=== PATIENT | male | born 1955 | race Caucasian/White ===

== ENCOUNTER 2016-06-22 10:29 | Inpatient (IN) ==
--- NOTE | 2016-06-22 11:17 | Emergency Department Note ---
START Narrative - START START: For this encounter, I have reviewed the resident, FLOW MATCH SOFA CUTTER, or PA documentation, treatment plan, and medical decision making; and I have had face to face time with this patient. 61 yo male presents with abdominal pain. s/p savannah x11 days. Pt reports nausea , loss of appetite. +one loose red bowel movement this morning. +pain in the conchita-umbilical area, intermittent throughout the day. Now located in generalized abdomen. Denies fever, chills, vomiting. No near syncopal symptoms , chest pain, sob, palpitations. No anticoagulant use. On exam, lungs are CTAB , heart RRR, abd feels distended. +voluntary guarding but without rigidity. + ttp of the conchita-umbilical area. CT shows likely SBO. Pt admitted to Dr. Hall.
[2016-06-22] MEDS ORDERED: *HR* Morphine 2 MG/ML SYRINGE IVP ONE (11:24)
[2016-06-22] MEDS ORDERED: 0.9 % Sodium Chloride 1,000 ML IVC ONE (11:24)
[2016-06-22] MEDS ORDERED: Ondansetron 4 MG/2 ML VIAL IV ONE (11:24)
--- NOTE | 2016-06-22 11:25 | Emergency Department Note ---
Disposition Clinical Impression: Small bowel obstruction, Melena, Nausea GI bleed Qualifiers: GI bleed type/associated pathology: melena Qualified Code(s): K92.1 - Melena Disposition: Admitted As Inpatient Condition: Fair Time of Disposition: 14:30 Abdominal Pain HPI - General Chief Complaint: ED Abdominal Pain Stated Complaint: abd pain, nausea Source: patient Mode of arrival: ambulatory Limitations: no limitations Nursing Notes Reviewed: Yes Vital Signs Reviewed: Yes - History of Present Illness HPI Narrative: Patient is a 61-year-old male who is status post cholecystectomy in [address] Newsome complains of abdominal pain 6 days, anorexia, nausea without vomiting and constipation 5 days. Patient denies syncope or presyncope , lightheadedness dizziness. Patient states pain started off periumbilical generalized crampy intermittent 8 out of 10 to 9 hours a day, 2 out of 10 to triage today. Last oral intake yesterday, last flatulence one day ago, last bowel movement of red loose stool small amount this morning. Pain Scale: 5 - Related Data Home Medications Medication Instructions Recorded Confirmed Aspirin 81 mg PO DAILY 06/11/16 06/16/16 Atorvastatin [Lipitor] 40 mg PO HS 06/11/16 06/16/16 Furosemide [Lasix] 20 mg PO DAILY 06/11/16 06/16/16 OxyCODONE/APAP 5/325 [Percocet 1 tab PO Q6HR PRN 06/22/16 06/22/16 5/325 MG] Allergies Allergy/AdvReac Type Severity Reaction Status Date / Time No Known Allergies Allergy Verified 06/11/16 11:05 All systems ED: reviewed and negative except as stated. Constitutional: Denies: fever, chills, weakness Eyes: Denies: vision change ENT ED: Denies: throat pain, congestion Cardiovascular: Denies: chest pain, palpitations, dyspnea on exertion, syncope Respiratory: Denies: cough, dyspnea Gastrointestinal: Reports: abdominal pain, nausea. Denies: vomiting, diarrhea Genitourinary: Denies: urgency, dysuria Musculoskeletal: Reports: back pain Integumentary: Denies: rash Neurological: Denies: headache Psychiatric: Denies: anxiety Endocrine: Denies: fatigue Abdominal Pain PMH - Past Medical History Medical history: Reports: arthritis, COPD, coronary artery disease, GERD, other Male Surgical History: Reports: cholecystectomy Psychiatric history: Reports: no psych history - Social History Smoking status: Never smoker Alcohol use: Reports: none Drug use: Reports: none Physical Exam - General Limitations: no limitations General appearance: alert, in no apparent distress - Head Head exam: atraumatic, normocephalic, normal inspection - Eye Eye exam: Present: normal appearance, PERRL, EOMI. Absent: scleral icterus - ENT ENT exam: normal exam, normal oropharynx, mucous membranes moist - Neck Neck exam: Present: normal inspection, full ROM, trachea midline. Absent: tenderness - Chest Chest inspection: Present: normal inspection, symmetric chest wall rise. Absent : tenderness - Respiratory Respiratory exam: Present: normal lung sounds bilaterally, respiratory distress. Absent: wheezes, accessory muscle use - Cardiovascular Cardiovascular exam: Present: regular rate, normal rhythm, normal heart sounds - Abdominal Exam Abdominal exam: Present: soft, tenderness, distention, guarding, normal bowel sounds, scar (Surgical scars abdomen appear nonpurulent periods of ecchymosis but no signs of inflammation signifying infection). Absent: rebound, rigidity Abdominal tenderness: Present: LUQ, epigastrium, moderate - Rectal Exam Agency Service Representative present during exam: Yes Rectal exam: Present: normal inspection, normal rectal tone, heme (+) stool, bloody stool - Extremities Exam Extremities exam: Present: normal inspection, full ROM, normal capillary refill. Absent: tenderness, pedal edema - Back Exam Back exam: Present: normal inspection, full ROM, tenderness. Absent: CVA tenderness (R), CVA tenderness (L), muscle spasm (Area of old injury mid back lumbar) - Psychiatric Psychiatric exam: Present: normal affect, normal mood - Skin Skin exam: Present: warm, intact Course - Reevaluation(s) Reevaluation #1: 61-year-old male complains of abdominal pain with status post cholecystectomy 11 days presents with anorexia and constipation and abdominal pain 6 days had episode of small amount of red stool this a.m. He is worrisome for partial bowel obstruction, volvulus, mesenteric ischemia, constipation, nephrolithiasis, appendicitis. Plan CT abdomen and pelvis, CBC, BMP, LFTs, lactate, EKG, discussion and with Dr. Newsome. Place patient on Zofran for nausea 2 mg morphine for pain, 1 L normal saline. Time: 11:20 Reevaluation #2: Patient was reexamined and his nausea is currently controlled after Zofran administration. Patient refused pain meds secondary to not currently having any abdominal pain. Hemoccult stool sample positive Time: 12:12 Reevaluation #3: CT abdomen and pelvis shows small bowel obstruction will consult surgery. Patient was accepted for admission to surgical services by Dr. Hall in place nothing by mouth. Dr. Hall states that he will handle all of the patient's orders from here on out. He came and saw the patient in the emergency department. Time: 14:40 - Consultations Consultation #1: Discussed with Dr. Hall who states he wants to see the patient before admitting to his service or to medicine. Time: 14:11 Vital Signs Temperature 98 F 06/22/16 10:31 Pulse Rate 86 06/22/16 10:31 Respiratory Rate 16 06/22/16 10:31 Blood Pressure 138/88 06/22/16 10:31 O2 Sat by Pulse Oximetry 97 06/22/16 10:31 Temperature 98.4 F 06/22/16 16:21 Pulse Rate 69 06/22/16 16:21 Respiratory Rate 18 06/22/16 16:21 Blood Pressure 130/66 06/22/16 16:21 O2 Sat by Pulse Oximetry 94 L 06/22/16 16:21 Oxygen Delivery Oxygen Delivery Room Air Abdominal Pain - Medical Records Medical records reviewed: Yes I reviewed the patient's medical records. - Lab Data Lab results reviewed: Yes I reviewed the patient's lab results. Lab results narrative: Short CBC 06/22/16 Range/Units 12:07 WBC 8.8 (4.3-11.1) K/mcL Hgb 15.0 (12.9-16.9) g/dL Hct 42.3 (37.5-50.1) % Plt Count 238 (140-400) K/mcL Neutrophils # 7.2 (1.6-8.9) K/mcL BMP 06/22/16 Range/Units 12:07 Sodium 139 (136-145) mEq/L Potassium 4.2 (3.5-4.5) mEq/L Chloride 108 (98-109) mEq/L Carbon Dioxide 21 (19-29) mEq/L BUN 16 (8-26) mg/dL Creatinine 0.99 (0.72-1.25) mg/dL Glucose 99 (70-99) mg/dL Calcium 8.9 (8.6-10.8) mg/dL Liver Function 06/22/16 Range/Units 12:07 Total Bilirubin 1.1 (0.2-1.2) mg/dL Direct Bilirubin 0.5 (0.0-0.5) mg/dL AST 28 (5-34) Units/L ALT 31 (0-55) Units/L Alkaline Phosphatase 72 (38-126) Units/L Albumin 3.4 L (3.5-5.0) g/dL Urine 06/22/16 Range/Units 13:45 Urine Color Yellow (Yellow) Urine Clarity Clear (Clear) Urine pH 6.0 (5.0-8.0) pH Units Ur Specific [place] > 1.030 H (1.010-1.025) Urine Protein Negative (Neg-Trace) mg/dL Urine Glucose (UA) Normal (Normal) mg/dL Result diagrams: 06/22/16 12:07 06/22/16 12:07 Lab Results 06/22/16 06/22/16 06/22/16 Range/Units 11:40 12:07 12:07 WBC 8.8 (4.3-11.1) K/mcL RBC 4.91 (4.19-5.50) M/mcL Hgb 15.0 (12.9-16.9) g/dL Hct 42.3 (37.5-50.1) % MCV 86.2 (83.0-100.0) fL MCH 30.5 (28.0-33.3) pg MCHC 35.5 (31.6-35.5) g/dL RDW 14.0 (11.5-14.5) % Plt Count 238 (140-400) K/mcL MPV 9.1 L (9.4-12.4) fL Immature Gran % 0.5 (0-4) % Seg Neutrophils % 82.0 % Lymphocytes % 7.4 % Monocytes % 8.6 % Eosinophils % 1.2 % Basophils % 0.3 % Neutrophils # 7.2 (1.6-8.9) K/mcL Lymphocytes # 0.7 (0.6-4.6) K/mcL Monocytes # 0.8 (0.0-1.3) K/mcL Eosinophils # 0.1 (0.0-0.6) K/mcL Basophils # 0.0 (0.0-0.2) K/mcL Sodium 139 (136-145) mEq/L Potassium 4.2 (3.5-4.5) mEq/L Chloride 108 (98-109) mEq/L Carbon Dioxide 21 (19-29) mEq/L BUN 16 (8-26) mg/dL Creatinine 0.99 (0.72-1.25) mg/dL Est GFR ( Amer) > 60 (> 60) Est GFR (Non-Af Amer) > 60 (> 60) BUN/Creatinine Ratio 16 (6-26) Glucose 99 (70-99) mg/dL Calculated Osmolality 289 (280-300) Lactic Acid (0.5-2.2) mmol/L Calcium 8.9 (8.6-10.8) mg/dL Total Bilirubin 1.1 (0.2-1.2) mg/dL Direct Bilirubin 0.5 (0.0-0.5) mg/dL Indirect Bilirubin 0.6 (0.0-1.2) mg/dL AST 28 (5-34) Units/L ALT 31 (0-55) Units/L Alkaline Phosphatase 72 (38-126) Units/L Serum Total Protein 6.5 (6.0-8.3) g/dL Albumin 3.4 L (3.5-5.0) g/dL Globulin 3.1 (2.4-3.5) g/dL Albumin/Globulin Ratio 1.1 (1.1-2.2) Urine Color (Yellow) Urine Clarity (Clear) Urine pH (5.0-8.0) pH Units Ur Specific [place] (1.010-1.025) Urine Protein (Neg-Trace) mg/dL Urine Glucose (UA) (Normal) mg/dL Urine Ketones (Negative) mg/dL Urine Blood (Negative) Urine Nitrite (Negative) Urine Bilirubin (Negative) Urine Urobilinogen (Normal) mg/dL Ur Leukocyte Esterase (Negative) Urine Microscopic RBC (0-3) per hpf Urine Microscopic WBC (0-3) per hpf Ur Squamous Epith Cells (None-Few) per lpf Urine Bacteria (None-Few) per hpf Hyaline Casts (None-Few) per lpf Ur Culture Indicated? (NO) Stool Occult Blood Positive A (Negative) 06/22/16 06/22/16 Range/Units 12:07 13:45 WBC (4.3-11.1) K/mcL RBC (4.19-5.50) M/mcL Hgb (12.9-16.9) g/dL Hct (37.5-50.1) % MCV (83.0-100.0) fL MCH (28.0-33.3) pg MCHC (31.6-35.5) g/dL RDW (11.5-14.5) % Plt Count (140-400) K/mcL MPV (9.4-12.4) fL Immature Gran % (0-4) % Seg Neutrophils % % Lymphocytes % % Monocytes % % Eosinophils % % Basophils % % Neutrophils # (1.6-8.9) K/mcL Lymphocytes # (0.6-4.6) K/mcL Monocytes # (0.0-1.3) K/mcL Eosinophils # (0.0-0.6) K/mcL Basophils # (0.0-0.2) K/mcL Sodium (136-145) mEq/L Potassium (3.5-4.5) mEq/L Chloride (98-109) mEq/L Carbon Dioxide (19-29) mEq/L BUN (8-26) mg/dL Creatinine (0.72-1.25) mg/dL Est GFR ( Amer) (> 60) Est GFR (Non-Af Amer) (> 60) BUN/Creatinine Ratio (6-26) Glucose (70-99) mg/dL Calculated Osmolality (280-300) Lactic Acid 0.9 (0.5-2.2) mmol/L Calcium (8.6-10.8) mg/dL Total Bilirubin (0.2-1.2) mg/dL Direct Bilirubin (0.0-0.5) mg/dL Indirect Bilirubin (0.0-1.2) mg/dL AST (5-34) Units/L ALT (0-55) Units/L Alkaline Phosphatase (38-126) Units/L Serum Total Protein (6.0-8.3) g/dL Albumin (3.5-5.0) g/dL Globulin (2.4-3.5) g/dL Albumin/Globulin Ratio (1.1-2.2) Urine Color Yellow (Yellow) Urine Clarity Clear (Clear) Urine pH 6.0 (5.0-8.0) pH Units Ur Specific [place] > 1.030 H (1.010-1.025) Urine Protein Negative (Neg-Trace) mg/dL Urine Glucose (UA) Normal (Normal) mg/dL Urine Ketones 40 H (Negative) mg/dL Urine Blood Trace H (Negative) Urine Nitrite Negative (Negative) Urine Bilirubin Small H (Negative) Urine Urobilinogen Normal (Normal) mg/dL Ur Leukocyte Esterase Negative (Negative) Urine Microscopic RBC 5-15 H (0-3) per hpf Urine Microscopic WBC 0-3 (0-3) per hpf Ur Squamous Epith Cells Many H (None-Few) per lpf Urine Bacteria None Seen (None-Few) per hpf Hyaline Casts None Seen (None-Few) per lpf Ur Culture Indicated? NO (NO) Stool Occult Blood (Negative) - Radiology Data Radiology results reviewed: Yes I reviewed the patient's radiology results. Abdomen/Pelvis CT 06/22/16 11:22 IMPRESSION: 1. Acute small bowel obstruction with transition point in the mid ventral abdominal wall, likely secondary to adhesion. The dilated small bowel loops measure up to 4 cm. No ascites or free air. 2. Postsurgical changes of cholecystectomy. Mild stranding in the cholecystectomy bed without fluid collection or acute complication. 3. Normal appendix. D/ / 06/22/2016 13:48:20 Aliyah Montana MD / mony Interpreting Provider: Aliyah Montana MD - EKG Data EKG attestation: Yes I reviewed and interpreted this EKG. EKG results narrative: EKG dated 06/22/2016 1128 hrs. shows a sinus rhythm with a ventricular rate of [address] elevations or depressions in any leads. QRS widening with QT /QTC of 420/454 ms, QRS duration 148 ms. Urine of 182 ms.
[2016-06-22 12:20] LABS: Basophils % 0.3 %; Eosinophils # 0.1 K/mcL (0.0-0.6); Eosinophils % 1.2 %; Hematocrit 42.3 % (37.5-50.1); Immature Granulocytes % 0.5 % (0-4); Lymphocytes # 0.7 K/mcL (0.6-4.6); Lymphocytes % 7.4 %; Mean Corpuscular HGB Conc 35.5 g/dL (31.6-35.5); Mean Corpuscular Hemoglobin 30.5 pg (28.0-33.3); Mean Corpuscular Volume 86.2 fL (83.0-100.0); Mean Platelet Volume 9.1 fL (9.4-12.4); Monocytes # 0.8 K/mcL (0.0-1.3); Monocytes % 8.6 %; Neutrophils # 7.2 K/mcL (1.6-8.9); Platelet Count 238 K/mcL (140-400); Red Blood Count 4.91 M/mcL (4.19-5.50)
[2016-06-22 12:36] LABS: Alanine Aminotransferase 31 Units/L (0-55); Albumin 3.4 g/dL (3.5-5.0); Albumin/Globulin Ratio 1.1 (1.1-2.2); Alkaline Phosphatase 72 Units/L (38-126); Aspartate Amino Transferase 28 Units/L (5-34); BUN/Creatinine Ratio 16 (6-26); Bilirubin,Direct 0.5 mg/dL (0.0-0.5); Bilirubin,Indirect 0.6 mg/dL (0.0-1.2); Bilirubin,Total 1.1 mg/dL (0.2-1.2); Blood Urea Nitrogen 16 mg/dL (8-26); Calcium 8.9 mg/dL (8.6-10.8); Carbon Dioxide 21 mEq/L (19-29); Chloride 108 mEq/L (98-109); Globulin 3.1 g/dL (2.4-3.5); Glucose 99 mg/dL (70-99); Osmolality,Calculated 289 (280-300); Potassium 4.2 mEq/L (3.5-4.5); Sodium 139 mEq/L (136-145); Total Protein 6.5 g/dL (6.0-8.3); eGFR For African Americans > 60 (> 60); eGFR For Non-African Americans > 60 (> 60)
[2016-06-22 14:37] LABS: Bilirubin,Urine Small (Negative); Blood,Urine Trace (Negative); Clarity,Urine Clear (Clear); Color,Urine Yellow (Yellow); Glucose,Urine (UA) Normal (Normal); Ketones,Urine 40 mg/dL (Negative); Leukocyte Esterase,Urine Negative (Negative); Nitrite,Urine Negative (Negative); Protein,Urine Negative (Neg-Trace); Specific Gravity,Urine > 1.030 (1.010-1.025); Urobilinogen,Urine Normal (Normal)
[2016-06-22 14:38] LABS: Bacteria,Urine None Seen per hpf (None-Few); Hyaline Casts,Urine None Seen per lpf (None-Few); Squamous Epithelial Cell,Urine Many per lpf (None-Few); WBC,Urine 0-3 per hpf (0-3)
[2016-06-22] MEDS ORDERED: Naloxone 0.4 MG/ML INJ IVP PRN (14:45)
--- NOTE | 2016-06-22 17:01 | General Surg History&Physical ---
Date of Encounter: 06/22/16 Time of Encounter: 16:05 Assessment and Plan (1) Partial small bowel obstruction Current Visit: Yes Status: Acute The assessment and plan as outlined above was discussed with the patient and/or family members who expressed understanding and agreement. All questions were answered. Explain to the patient that he may have signs of partial small bowel obstruction whether related to the surgical procedure or possible gastroenteritis is hard to tell. Regardless, the mainstay of treatment will be IV fluid hydration and serial abdominal examinations. I do not think it is necessary to place an NG tube at this time and we will provide him with antinausea medication. We will closely follow and I will inform Dr. Newsome once he returns tomorrow that the patient has been admitted to [facility] under observation. History of Present Illness Chief complaint: Abdominal pain, nausea HPI: Mr. Davis is a 61 year old male with a past medical history significant for lower GI bleed, COPD, and coronary artery disease with symptoms of biliary colic and underwent a laparoscopic cholecystectomy with cholangiogram (robotic) with Dr. Newsome on 06/11/2016. The patient states that he was doing well until 5 days ago when he had the onset of flanks abdominal pain left greater than right. He states these been having nausea as well but denies any vomiting. He normally has 2-3 bowel movement per day but his last bowel movement was earlier today and he may have had one yesterday. He states he noticed some blood with wiping and he has had this in the past (previous admission for lower GI bleed). Denies any fever or chill symptoms and presented himself to [facility] for further evaluation. Past Med Surg Social Fam HX - Past Medical History Medical history: arthritis, COPD, coronary artery disease, GERD, other Psychiatric history: no psych history - Past Surgical History Surgical History: cholecystectomy (06/11/16), orthopedic, other - Social History Smoking Status: Never smoker Smokeless Tobacco Status: No Alcohol use: none Drug use: none - Family History Mother Living Status: Cause of : CHF Hx Family Cardiac Disorders: Yes (CHF, HTN) Hx Family Neurologic Disorders: Yes (dementia) Father Living Status: Cause of : CHF Hx Family Cardiac Disorders: Yes (HTN, CHF) Hx Family Endocrine Disorder: Yes (diabetes) Hx Family Neurologic Disorders: Yes (Alzheimer's) Medications and Allergies Aspirin 81 mg PO DAILY 06/11/16 [History] Atorvastatin [Lipitor] 40 mg PO HS 06/11/16 [History] Furosemide [Lasix] 20 mg PO DAILY 06/11/16 [History] OxyCODONE/APAP 5/325 [Percocet 5/325 MG] 1 tab PO Q6HR PRN 06/22/16 [History] Allergies No Known Allergies Allergy (Verified 06/11/16 11:05) Review of Systems All systems PM: reviewed and no additional remarkable complaints except as stated All systems PM: A 10-system review of systems was performed and is negative for pertinent findings except as documented above in the HPI. General Surgery Exam Initial Vital Signs Temp Pulse Resp BP Pulse Ox 98 F 86 16 138/88 97 06/22/16 10:31 06/22/16 10:31 06/22/16 10:31 06/22/16 10:31 06/22/16 10:31 - General physical appearance well developed, well nourished - Eyes normal ocular movement - Respiratory normal expansion, normal respiratory effort, clear to auscultation - Cardiovascular Cardiovascular exam: Present: RRR, no murmurs/rubs/gallops - Abdomen Abdomen general surgery: Present: soft (Scant bowel sounds. Incisions CDI. No erythema. No drainage. Mild pain noted to palpation.) - Neurologic Present: CN 2-12 grossly intact, normal coordination - Musculoskeletal Present: other (No clubbing, cyanosis, or edema.) - Psychiatric Psychiatric general surgery: Present: A&Ox3 Results - Labs 06/23/16 04:42 06/23/16 04:42 Abnormal lab results MPV 9.1 fL (9.4-12.4) L 06/22/16 12:07 Albumin 3.4 g/dL (3.5-5.0) L 06/22/16 12:07 Ur Specific [place] > 1.030 (1.010-1.025) H 06/22/16 13:45 Urine Ketones 40 mg/dL (Negative) H 06/22/16 13:45 Urine Blood Trace (Negative) H 06/22/16 13:45 Urine Bilirubin Small (Negative) H 06/22/16 13:45 Urine Microscopic RBC 5-15 per hpf (0-3) H 06/22/16 13:45 Ur Squamous Epith Cells Many per lpf (None-Few) H 06/22/16 13:45 Stool Occult Blood Positive (Negative) A 06/22/16 11:40 All other labs normal. - Imaging CT scan - abdomen: report reviewed, image reviewed (The distention of the small bowel with areas of normal appearing caliber possible concerning for partial small bowel obstruction. No abdominal masses noted no fluid/abscess is noted)
[2016-06-22] MEDS: Pantoprazole 40 MG VIAL IVP SCH (17:07)
[2016-06-22] MEDS: 0.9 % Sodium Chloride 1,000 ML IVC SCH (18:07)
[2016-06-22] MEDS: Ondansetron 4 MG/2 ML VIAL IVP PRN (19:07)
[2016-06-22] MEDS: *HR* HYDROmorphone (PF) 1 MG/ML SYRINGE IVP PRN (23:23)
[2016-06-23] MEDS: 0.9 % Sodium Chloride 1,000 ML IVC SCH ×3 (03:04→14:18)
[2016-06-23 05:06] LABS: Basophils % 0.3 %; Eosinophils # 0.2 K/mcL (0.0-0.6); Eosinophils % 1.5 %; Hematocrit 40.4 % (37.5-50.1); Hemoglobin 14.2 g/dL (12.9-16.9); Immature Granulocytes % 0.6 % (0-4); Lymphocytes # 0.6 K/mcL (0.6-4.6); Mean Corpuscular HGB Conc 35.1 g/dL (31.6-35.5); Mean Corpuscular Hemoglobin 30.9 pg (28.0-33.3); Mean Platelet Volume 9.3 fL (9.4-12.4); Monocytes # 0.9 K/mcL (0.0-1.3); Monocytes % 8.8 %; Neutrophils # 8.7 K/mcL (1.6-8.9); Platelet Count 233 K/mcL (140-400); Red Blood Count 4.59 M/mcL (4.19-5.50); Red Cell Distribution Width 14.3 % (11.5-14.5); Segmented Neutrophils % 82.8 %
[2016-06-23 05:19] LABS: BUN/Creatinine Ratio 18 (6-26); Blood Urea Nitrogen 17 mg/dL (8-26); Calcium 8.6 mg/dL (8.6-10.8); Carbon Dioxide 20 mEq/L (19-29); Chloride 109 mEq/L (98-109); Glucose 83 mg/dL (70-99); Osmolality,Calculated 289 (280-300); Potassium 4.3 mEq/L (3.5-4.5); Sodium 139 mEq/L (136-145); eGFR For African Americans > 60 (> 60); eGFR For Non-African Americans > 60 (> 60)
[2016-06-23] MEDS: Pantoprazole 40 MG VIAL IVP SCH (09:49)
[2016-06-23] MEDS: Ondansetron 4 MG/2 ML VIAL IVP PRN ×2 (10:00→18:13)
--- NOTE | 2016-06-23 12:44 | General Surgery Progress Note ---
Date of Encounter: 06/23/16 Time of Encounter: 12:30 - Assessment and Plan (1) Partial small bowel obstruction Current Visit: Yes Status: Acute Continue with conservative measures: Advance to clear liquids Decrease IV fluids to 60ml/hour Supportive care/pain control Magnesium citrate PO IS frankie 1 hour while awake Ambulate hallways TID with assistance (2) Urinary retention Current Visit: Yes Status: Acute Argueta catheter to SD UA negative for UTI Flomax start today (3) DVT prophylaxis Current Visit: Yes Status: Acute heparin 5,000 units SQ twice daily for DVT prophylaxis Subjective Patient reports: no new complaints, feels better, pain is less, flatus (last time was yesterday), bowel movement (48 hours ago), afebrile Objective Vital Signs - Last 8 Hours Temp Pulse Resp BP Pulse Ox 06/23/16 10:50 98.3 F 68 14 131/69 93 L 06/23/16 07:45 97.8 F 67 18 96/57 92 L Intake and Output 06/22/16 06/23/16 06/23/16 23:59 07:59 15:59 Intake Total 0 / 0 1000 / 1000 Output Total 150 / 150 500 / 500 0 / 0 Balance -150 / -150 500 / 500 0 / 0 Intake: IV Fluids 1000 / 1000 0.9 % Sodium Chloride 1, 1000 / 1000 000 ML @ 100 mls/hr IVC . Q10H [facility] Rx#:[id number] Oral 0 / 0 0 / 0 Output: Urine 150 / 150 Catheter 500 / 500 0 / 0 Other: Meal NPO for supper NPO Weight 105.7 kg Blood Glucose* 94 77 Patient Weight 06/23/16 23:59 Weight 105.7 kg - General physical appearance well developed, well nourished, no distress - Eyes normal ocular movement - ENT normal mucosa, atraumatic, normocephalic - Neck Neck exam: trachea midline - Respiratory normal respiratory effort, clear to auscultation - Cardiovascular Cardiovascular exam: Present: RRR - Abdomen Abdomen: Present: bowel sounds present, soft, distended, tender (mildly tender, expected post-operative) - Incision Incision: Present: clean and dry, intact - Genitourinary other (argueta catheter to SD with clear, yellow urine) - Integumentary no rash, no growths, no abnormal pigmentation - Neurologic CN 2-12 grossly intact - Psychiatric oriented to time, oriented to person, oriented to place, speech is normal, memory intact - Labs 06/23/16 04:42 06/23/16 04:42 Diabetes panel 06/23/16 Range/Units 04:42 Sodium 139 (136-145) mEq/L Potassium 4.3 (3.5-4.5) mEq/L Chloride 109 (98-109) mEq/L Carbon Dioxide 20 (19-29) mEq/L BUN 17 (8-26) mg/dL Creatinine 0.94 (0.72-1.25) mg/dL Glucose 83 (70-99) mg/dL Calcium 8.6 (8.6-10.8) mg/dL Calcium panel 06/23/16 Range/Units 04:42 Calcium 8.6 (8.6-10.8) mg/dL Pituitary panel 06/23/16 Range/Units 04:42 Sodium 139 (136-145) mEq/L Potassium 4.3 (3.5-4.5) mEq/L Chloride 109 (98-109) mEq/L Carbon Dioxide 20 (19-29) mEq/L BUN 17 (8-26) mg/dL Creatinine 0.94 (0.72-1.25) mg/dL Glucose 83 (70-99) mg/dL Calcium 8.6 (8.6-10.8) mg/dL Adrenal panel 06/23/16 Range/Units 04:42 Sodium 139 (136-145) mEq/L Potassium 4.3 (3.5-4.5) mEq/L Chloride 109 (98-109) mEq/L Carbon Dioxide 20 (19-29) mEq/L BUN 17 (8-26) mg/dL Creatinine 0.94 (0.72-1.25) mg/dL Glucose 83 (70-99) mg/dL Calcium 8.6 (8.6-10.8) mg/dL Consult Discharge Plan - Plan Referrals: Leyla Louise, MUSA [Primary Care Provider] - - Attending Attestation I examined this patient and my medical decision-making was reviewed with the MACHINE STEMMER/PA/Advanced Practice Nurse/Resident Physician. I agree with the documented findings, disposition and treatment plan as described except to the extent set forth below.
[2016-06-23] MEDS: *HR* HYDROmorphone (PF) 1 MG/ML SYRINGE IVP PRN (15:37)
[2016-06-23] MEDS: *HR* Heparin 5,000 UNIT/ML VIAL SQ SCH (17:43)
[2016-06-24] MEDS: 0.9 % Sodium Chloride 1,000 ML IVC SCH (05:19)
[2016-06-24] MEDS: *HR* Heparin 5,000 UNIT/ML VIAL SQ SCH ×2 (05:20→17:51)
--- NOTE | 2016-06-24 08:16 | Electrocardiograph Report ---
[place] [id number] Test Date: 2016-06-22 Pat Name: Demond Davis Department: 104 Room: 3A46 Gender: M [employer] Maker: MSC : [id number] Requested By: Anant Tidwell Order Number: [id number] Reading MD: Kar Smith MD Measurements Intervals [place] Rate: 79 P: 19 MO: 182 QRS: 12 QRSD: 148 T: 137 QT: 420 QTc: 454 Interpretive Statements SINUS RHYTHM LEFT BUNDLE BRANCH BLOCK Electronically Signed On 06-24-2016 8:14:36 EDT by Kar Smith MD
[2016-06-24] MEDS: Pantoprazole 40 MG VIAL IVP SCH (08:30)
[2016-06-24] MEDS: Aspirin 81 MG TAB.CHEW PO SCH (08:30)
--- NOTE | 2016-06-24 11:01 | General Surgery Progress Note ---
Date of Encounter: 06/24/16 Time of Encounter: 10:59 - Assessment and Plan (1) Partial small bowel obstruction Current Visit: Yes Status: Acute Continue with conservative measures: SBFT today with gastrograffin Advance to clear liquids IV fluids to 60ml/hour Supportive care/pain control IS frankie 1 hour while awake Ambulate hallways TID with assistance (2) Urinary retention Current Visit: Yes Status: Acute Argueta catheter to SD UA negative for UTI- negative Flomax- 2nd dose today (3) DVT prophylaxis Current Visit: Yes Status: Acute heparin 5,000 units SQ twice daily for DVT prophylaxis Subjective Patient reports: no new complaints, still having pain (left sided (improved)), tolerating liquids well, flatus, bowel movement, diarrhea, nausea (last evening) , afebrile, other (Continues to feel bloated and has no appetite) Objective Vital Signs - Last 8 Hours Temp Pulse Resp BP Pulse Ox 06/24/16 10:30 98.2 F 78 13 106/70 95 06/24/16 07:35 98 F 63 17 130/78 93 L 06/24/16 04:23 98.1 F 86 18 123/79 93 L Intake and Output 06/23/16 06/24/16 06/24/16 23:59 07:59 15:59 Intake Total 180 / 180 1000 / 1000 360 / 360 Output Total 325 / 325 300 / 300 Balance -145 / -145 700 / 700 360 / 360 Intake: IV Fluids 1000 / 1000 0.9 % Sodium Chloride 1, 1000 / 1000 000 ML @ 60 mls/hr IVC . [id number] [facility] Rx#: [id number] Oral 180 / 180 0 / 0 360 / 360 Output: Urine 0 / 0 Catheter 325 / 325 300 / 300 Other: Meal Dinner Breakfast Stool Size Moderate Small Stool Consistency liquid liquid Stool Color Brown Brown Yellow # Bowel Movements 0 1 Weight 106.549 kg Patient Weight 06/24/16 23:59 Weight 106.549 kg - General physical appearance well developed, well nourished, no distress - Eyes normal ocular movement - ENT normal mucosa, atraumatic, normocephalic - Neck Neck exam: trachea midline - Respiratory normal respiratory effort, clear to auscultation - Cardiovascular Cardiovascular exam: Present: RRR - Abdomen Abdomen: Present: bowel sounds present, soft, tender (mild) Abdominal Tenderness: LUQ - Incision Incision: Present: clean and dry, intact - Genitourinary other (argueta catheter to SD with clear, yellow urine noted) - Neurologic CN 2-12 grossly intact - Psychiatric oriented to time, oriented to person, oriented to place, speech is normal, memory intact - Labs 06/23/16 04:42 06/23/16 04:42 Consult Discharge Plan - Plan Referrals: Leyla Louise, ENDOSCOPIC TECHNICIAN [Primary Care Provider] - - Attending Attestation I examined this patient and my medical decision-making was reviewed with the WRAPPER LEAF INSPECTOR/PA/Advanced Practice Nurse/Resident Physician. I agree with the documented findings, disposition and treatment plan as described except to the extent set forth below.
[2016-06-24] MEDS: Ondansetron 4 MG/2 ML VIAL IVP PRN (14:56)
[2016-06-24] MEDS: *HR* HYDROmorphone (PF) 1 MG/ML SYRINGE IVP PRN (21:43)
[2016-06-25] MEDS: 0.9 % Sodium Chloride 1,000 ML IVC SCH ×2 (03:10→21:09)
[2016-06-25] MEDS: *HR* Heparin 5,000 UNIT/ML VIAL SQ SCH ×2 (06:12→17:14)
[2016-06-25] MEDS: Aspirin 81 MG TAB.CHEW PO SCH (08:47)
[2016-06-25] MEDS: Pantoprazole 40 MG VIAL IVP SCH (08:47)
[2016-06-25] MEDS: *HR* HYDROmorphone (PF) 1 MG/ML SYRINGE IVP PRN ×2 (11:21→22:39)
--- NOTE | 2016-06-25 11:23 | General Surgery Progress Note ---
Date of Encounter: 06/25/16 Time of Encounter: 11:20 - Assessment and Plan (1) Partial small bowel obstruction Current Visit: Yes Status: Acute Continue with conservative measures: SBFT- PSBO and patient had multiple bowel movements and is continuing to pass flatus F/U acute abdominal series this morning Clear liquids IV fluids to 60ml/hour Supportive care/pain control IS frankie 1 hour while awake Ambulate hallways TID with assistance (2) Urinary retention Current Visit: Yes Status: Acute Discontinue argueta catheter UA negative for UTI- negative Flomax- 3nd dose today (3) DVT prophylaxis Current Visit: Yes Status: Acute heparin 5,000 units SQ twice daily for DVT prophylaxis Subjective Patient reports: no new complaints, still having pain (Left sided discomfort), tolerating liquids well (poor appetite), flatus, bowel movement (multiple liquid bowel movements), afebrile Objective Vital Signs - Last 8 Hours Temp Pulse Resp BP Pulse Ox 06/25/16 11:02 98.4 F 68 14 105/69 94 L 06/25/16 06:53 98.2 F 67 16 97/61 96 06/25/16 03:21 97.5 F L 64 17 128/70 93 L Intake and Output 06/24/16 06/25/16 06/25/16 23:59 07:59 15:59 Intake Total 240 / 240 1000 / 1000 360 / 360 Output Total 250 / 250 100 / 100 Balance -10 / -10 900 / 900 360 / 360 Intake: IV Fluids 1000 / 1000 0.9 % Sodium Chloride 1, 1000 / 1000 000 ML @ 60 mls/hr IVC . [id number] [facility] Rx#: [id number] Oral 240 / 240 360 / 360 Output: Catheter 250 / 250 100 / 100 Other: Meal Breakfast Stool Size Large Smear Stool Consistency liquid liquid Stool Color Green Green Weight 106.73 kg Patient Weight 06/25/16 23:59 Weight 106.73 kg - General physical appearance well developed, well nourished, no distress - Eyes normal ocular movement - ENT normal mucosa, atraumatic, normocephalic - Neck Neck exam: trachea midline - Respiratory normal respiratory effort, clear to auscultation - Cardiovascular Cardiovascular exam: Present: RRR - Abdomen Abdomen: Present: bowel sounds present, soft, tender Abdominal Tenderness: LUQ - Incision Incision: Present: clean and dry, intact - Genitourinary other (argueta catheter to SD with clear, yellow urine noted) - Neurologic CN 2-12 grossly intact - Psychiatric oriented to time, oriented to person, oriented to place, speech is normal, memory intact - Labs 06/23/16 04:42 06/23/16 04:42 Consult Discharge Plan - Plan Referrals: Leyla Louise, MUSA [Primary Care Provider] - - Attending Attestation I examined this patient and my medical decision-making was reviewed with the LACTATION SPECIALIST/PA/Advanced Practice Nurse/Resident Physician. I agree with the documented findings, disposition and treatment plan as described except to the extent set forth below.
[2016-06-26] MEDS: *HR* Heparin 5,000 UNIT/ML VIAL SQ SCH (06:34)
[2016-06-26] MEDS: Aspirin 81 MG TAB.CHEW PO SCH (09:24)
[2016-06-26] MEDS: Pantoprazole 40 MG VIAL IVP SCH (09:25)
--- NOTE | 2016-06-26 14:58 | Discharge Summary ---
Date of Encounter: 06/25/16 Time of Encounter: 14:45 - Discharge Diagnosis (1) Partial small bowel obstruction Priority: Primary Status: Resolved (2) Urinary retention Priority: Secondary Status: Chronic - Discharge Medications Prescriptions: Ondansetron ODT [Zofran ODT] 4 mg SL Q6HR #30 tab.rapdis Tamsulosin [Flomax] 0.4 mg PO DAILY #30 capsule Home Medications: Aspirin 81 mg PO DAILY 06/11/16 [History] Atorvastatin [Lipitor] 40 mg PO HS 06/11/16 [History] Furosemide [Lasix] 20 mg PO DAILY 06/11/16 [History] OxyCODONE/APAP 5/325 [Percocet 5/325 MG] 1 tab PO Q6HR PRN 06/22/16 [History] Ondansetron ODT [Zofran ODT] 4 mg SL Q6HR #30 tab.rapdis 06/26/16 [Rx] Tamsulosin [Flomax] 0.4 mg PO DAILY #30 capsule 06/26/16 [Rx] Allergies/Adverse Reactions: Allergies No Known Allergies Allergy (Verified 06/11/16 11:05) General Surgery Exam Initial Vital Signs Temp Pulse Resp BP Pulse Ox 98 F 86 16 138/88 97 06/22/16 10:31 06/22/16 10:31 06/22/16 10:31 06/22/16 10:31 06/22/16 10:31 - General physical appearance well developed, well nourished, no distress - Eyes normal ocular movement - ENT normal mucosa, atraumatic, normocephalic - Neck trachea midline - Respiratory normal respiratory effort, clear to auscultation - Cardiovascular Cardiovascular exam: Present: RRR, 15, 16 - Abdomen Abdomen general surgery: Present: bowel sounds present, soft, tender (minimal) Abdominal Tenderness: Present: LUQ - Incision Incision: Present: clean and dry, intact - Integumentary Integumentary general surgery: Present: warm and dry - Neurologic Present: CN 2-12 grossly intact, normal coordination, normal sensation - Musculoskeletal Present: normal gait - Psychiatric Psychiatric general surgery: Present: appropriate, oriented to person, oriented to place, oriented to time, speech is normal, memory intact Date of admission: 06/24/16 13:14 Primary care physician: Leyla Louise Discharging clinician: Brooks Gonzales. Yamilet) Anticipated date of discharge: 06/26/16 - Patient Status Disposition: Home, Self-Care Condition: Good Functional capacity at discharge: independent ambulation Overall status at discharge: patient is progressing back to baseline - Discharge Instructions Follow Up With: Leyla Louise CNP [Primary Care Provider] - 07/07/16 9:00 am Brooks Newsome DO [Partnered Physician] - 07/01/16 1:50 pm (hospital follow-up) Ruiz Valdez MD [Partnered Physician] - (new referral for BPH work-up 2- 3 weeks) - Diet and Activity Activity: increase activity as tolerated Diet: advance to your usual diet - Hospital Course Hospital course: Mr. Davis is a 61 year old male s/p lap cholecystectomy on 06/11/[address] Newsome. He reported back to the ED with complaints of abdominal discomfort with associated nausea/vomiting. He was treated with conservative measures for PSBO. He also experienced urinary retention and did have to have a argueta catheter placed. He was treated with Flomax. He did have a SBFT which shows rapid movement of contrast through to the colon. He has had multiple bowel movements and is routinely passing flatus. He is currently tolerating full liquids without nausea/vomiting. His vital signs are stable and he is afebrile. He is voiding without difficulty. We will begin discharge planning and plan for outpatient follow-up next week. - Time Spent with Patient Total time spent providing and/or coordinating discharge services: Less than 30 minutes - Impressions ITS Impressions Chest/Abdomen X-ray 06/25/16 07:00 IMPRESSION: 1. The chest demonstrates mild left lung base atelectasis. 2. The contrast from the small bowel follow-through has completely passed into the colon. Stable focally dilated mid jejunal loops in the mid to lower abdomen. No evidence of perforation. D/ / 06/25/2016 12:25:15 Freddy Bourne MD / mony Interpreting Provider: Freddy Bourne MD - Attending Attestation I examined this patient and my medical decision-making was reviewed with the [employer]/PA/Advanced Practice Nurse/Resident Physician. I agree with the documented findings, disposition and treatment plan as described except to the extent set forth below.
[2016-06-26 15:51] VITALS: BP 110/71
== END 2016-06-26 16:20 | disposition home or self-care (01) | DRG 389 ==
LOC: 3ANU 10:29 → EMEROO 10:29 → 3ANU 15:46
PROVIDERS: ADMIT Surgery; ATTEND Surgery

== ENCOUNTER 2016-06-29 19:52 | Inpatient (IN) ==
--- NOTE | 2016-06-29 20:30 | Emergency Department Note ---
Disposition Clinical Impression: Small bowel obstruction Disposition: Admitted As Inpatient Condition: Good Time of Disposition: 01:55 Abdominal Pain HPI - General Chief Complaint: ED Abdominal Pain Stated Complaint: "Abd Pain/Nausea/Dehydrated" Time Seen by Provider: 06/29/16 20:06 Source: patient Mode of arrival: ambulatory Limitations: no limitations Nursing Notes Reviewed: Yes Vital Signs Reviewed: Yes - History of Present Illness HPI Narrative: 61-year-old male presents to the ED with abdominal pain. He describes left- sided abdominal pain that has been ongoing for past several days worse yesterday , feels like it radiates from the left side over the middle. He had an episode of nausea with vomiting hour and a half prior to arrival. Reportedly was brown stuff. He has eaten very minimally today. Reports a bowel movement several hours ago. He was recently admitted a week ago for a partial small bowel obstruction. Reportedly self resolved with conservative treatment he was discharged on . He reports a CT scan as well as several x-rays including contrasts for bowel study, and said he has been having consistent diarrhea. He reports episode of nonbloody diarrhea today. He has also been passing flatus. Denies any recent illness, chest pain or shortness of breath. No other physical complaints. He has a follow-up with Dr. Newsome on Thursday for follow-up of his cholecystectomy 3 weeks ago. He recently restarted his oxycodone 2 days ago. Zofran has not helped with his nausea. Pain Scale: 5 - Related Data Home Medications Medication Instructions Recorded Confirmed Aspirin 81 mg PO DAILY 06/11/16 06/22/16 Atorvastatin [Lipitor] 40 mg PO HS 06/11/16 06/22/16 Furosemide [Lasix] 20 mg PO DAILY 06/11/16 06/22/16 OxyCODONE/APAP 5/325 [Percocet 1 tab PO Q6HR PRN 06/22/16 06/22/16 5/325 MG] Previous Rx's Medication Instructions Recorded Ondansetron ODT [Zofran ODT] 4 mg SL Q6HR #30 tab.rapdis 06/26/16 Tamsulosin [Flomax] 0.4 mg PO DAILY #30 capsule 06/26/16 Allergies Allergy/AdvReac Type Severity Reaction Status Date / Time No Known Allergies Allergy Verified 06/29/16 19:59 All systems ED: reviewed and negative except as stated. Constitutional: Denies: fever, chills, weakness Cardiovascular: Denies: chest pain Respiratory: Denies: cough, dyspnea Gastrointestinal: Reports: abdominal pain, nausea, vomiting, diarrhea. Denies: melena, hematochezia Genitourinary: Denies: urgency, dysuria Musculoskeletal: Denies: back pain Integumentary: Denies: rash, abrasion Abdominal Pain PMH - Past Medical History Medical history: Reports: arthritis, COPD, coronary artery disease, GERD, other Male Surgical History: Reports: cholecystectomy Psychiatric history: Reports: no psych history - Social History Smoking status: Never smoker Alcohol use: Reports: none Drug use: Reports: none Physical Exam - General Limitations: no limitations General appearance: alert, in no apparent distress - Head Head exam: atraumatic, normocephalic, normal inspection - Eye Eye exam: Present: normal appearance, PERRL, EOMI - ENT ENT exam: normal exam, normal oropharynx, mucous membranes moist - Neck Neck exam: Present: normal inspection, full ROM, trachea midline - Chest Chest inspection: Present: normal inspection, symmetric chest wall rise - Respiratory Respiratory exam: Present: normal lung sounds bilaterally. Absent: respiratory distress, wheezes - Cardiovascular Cardiovascular exam: Present: regular rate, normal rhythm, normal heart sounds. Absent: systolic murmur, diastolic murmur - Abdominal Exam Abdominal exam: Present: soft (Obese), tenderness, hyperactive bowel sounds, incision (Well healing from prior cholecystectomy), scar (Midline from lymphoma) . Absent: distention, guarding, rebound, rigidity Abdominal tenderness: Present: diffuse - Extremities Exam Extremities exam: Present: normal inspection, full ROM, normal capillary refill. Absent: tenderness, pedal edema, calf tenderness - Neurological Exam Neurological exam: Present: alert, oriented X3 - Psychiatric Psychiatric exam: Present: normal affect, normal mood - Skin Skin exam: Present: warm, dry, intact, normal color Course Course Narrative: 61-year-old male presents with abdominal pain and nausea vomiting. Recently admitted for partial small bowel obstruction week ago. Was discharged several days ago and continues to have some mild pain. An episode of vomiting today. Concern for possible obstruction. He appears in no acute distress. Alert and oriented person place and time. Heart levels are normal. Abdomen is obese but soft nontender nondistended. Bowel sounds are hyperactive. He has well healing incision scars. We will give him Phenergan for nausea and get an acute abdominal series to rule out obstruction. - Reevaluation(s) Reevaluation #1: Acute abdominal series reveals small bowel obstruction with a transition point in the mid to proximal small bowel. Will get a CT with oral contrast and basic labs, patient will likely be admitted. Chest/Abdomen X-ray 06/29/16 20:25 IMPRESSION: Findings suggest a small bowel obstruction with a transition zone in the mid to proximal small bowel D/ / Christiano Henao MD / Christiano Henao MD Interpreting Provider: Christiano Henao MD Time: 21:40 Reevaluation #2: Labs are unremarkable. Lactate level is within normal limits. CT of the abdomen and pelvis with oral contrast which revealed a small bowel obstruction that has progressed from prior CT on the . Will admit patient for small bowel obstruction. Patient is in agreement with plan. Abdomen remains soft and not rigid or distended. Chest/Abdomen X-ray 06/29/16 20:25 IMPRESSION: Findings suggest a small bowel obstruction with a transition zone in the mid to proximal small bowel D/ / Christiano Henao MD / Christiano Henao MD Interpreting Provider: Christiano Henao MD Abdomen/Pelvis CT 06/29/16 21:38 IMPRESSION: Small bowel obstruction has progressed. D/ / Kevin Sepulveda MD / Kevin Sepulveda MD Interpreting Provider: Kevin Sepulveda MD Time: 01:52 Reevaluation #3: Review of the of KUB reveals NG to be the correct position. There is good gastric return. NG advanced an additional 1-2 cm. Awaiting radiologist's interpretation. Stable for admission to hospital. Time: 03:27 - Consultations Consultation #1: Spoke with on-call surgeon kevin Villa to admit for small bowel obstruction. NG tube placement. Time: 01:52 Vital Signs Temperature 98.3 F 06/29/16 19:54 Pulse Rate 114 06/29/16 19:54 Respiratory Rate 18 06/29/16 19:54 Blood Pressure 124/84 06/29/16 19:54 O2 Sat by Pulse Oximetry 95 06/29/16 19:54 Temperature 98.3 F 06/29/16 19:54 Pulse Rate 95 06/30/16 00:33 Respiratory Rate 16 06/30/16 02:52 Blood Pressure 118/67 06/30/16 02:52 O2 Sat by Pulse Oximetry 95 06/30/16 00:33 Oxygen Delivery Oxygen Delivery Room Air Abdominal Pain - Medical Records Medical records reviewed: Yes I reviewed the patient's medical records. - Lab Data Lab results reviewed: Yes I reviewed the patient's lab results. Result diagrams: 06/29/16 21:57 06/29/16 21:57 Lab Results 06/29/16 06/29/16 06/29/16 Range/Units 21:57 21:57 22:39 WBC 11.5 H (4.3-11.1) K/mcL RBC 5.52 H (4.19-5.50) M/mcL Hgb 16.5 D (12.9-16.9) g/dL Hct 49.6 (37.5-50.1) % MCV 89.9 (83.0-100.0) fL MCH 29.9 (28.0-33.3) pg MCHC 33.3 (31.6-35.5) g/dL RDW 14.7 H (11.5-14.5) % Plt Count 286 (140-400) K/mcL MPV 9.0 L (9.4-12.4) fL Immature Gran % 0.5 (0-4) % Seg Neutrophils % 83.6 % Lymphocytes % 6.8 % Monocytes % 8.3 % Eosinophils % 0.6 % Basophils % 0.2 % Neutrophils # 9.6 H (1.6-8.9) K/mcL Lymphocytes # 0.8 (0.6-4.6) K/mcL Monocytes # 1.0 (0.0-1.3) K/mcL Eosinophils # 0.1 (0.0-0.6) K/mcL Basophils # 0.0 (0.0-0.2) K/mcL Sodium 142 (136-145) mEq/L Potassium 3.8 (3.5-4.5) mEq/L Chloride 104 (98-109) mEq/L Carbon Dioxide 25 (19-29) mEq/L BUN 16 (8-26) mg/dL Creatinine 1.29 H (0.72-1.25) mg/dL Est GFR ( Amer) > 60 (> 60) Est GFR (Non-Af Amer) 57 L (> 60) BUN/Creatinine Ratio 12 (6-26) Glucose 97 (70-99) mg/dL Calculated Osmolality 295 (280-300) Lactic Acid 1.1 (0.5-2.2) mmol/L Calcium 9.6 (8.6-10.8) mg/dL Total Bilirubin 1.0 (0.2-1.2) mg/dL Direct Bilirubin 0.4 (0.0-0.5) mg/dL Indirect Bilirubin 0.6 (0.0-1.2) mg/dL AST 47 H (5-34) Units/L ALT 57 H (0-55) Units/L Alkaline Phosphatase 88 (38-126) Units/L Serum Total Protein 7.2 (6.0-8.3) g/dL Albumin 3.6 (3.5-5.0) g/dL Globulin 3.6 H (2.4-3.5) g/dL Albumin/Globulin Ratio 1.0 L (1.1-2.2) Lipase 13 (8-78) Units/L - Radiology Data Radiology results reviewed: Yes I reviewed the patient's radiology results. Images interpreted by radiologist and reviewed by myself, there is dilatation of the small bowel consistent with obstruction, compared to prior images appears worse than priors. Chest/Abdomen X-ray 06/29/16 20:25 IMPRESSION: Findings suggest a small bowel obstruction with a transition zone in the mid to proximal small bowel D/ / Christiano Henao MD / Christiano Henao MD Interpreting Provider: Christiano Henao MD Abdomen/Pelvis CT 06/29/16 21:38 IMPRESSION: Small bowel obstruction has progressed. D/ / Kevin Sepulveda MD / Kevin Sepulveda MD Interpreting Provider: Kevin Sepulveda MD Attestation Statement - Attestation Attestation: I, Guy Webster MD, personally performed a history and physical exam of the patient and discussed their management with the resident. I reviewed the resident's note and agree with the documented findings, medical decision making , and plan of care. 61-year-old male presents to the emergency department complaining of vomiting and abdominal pain and distention. Patient had a cholecystectomy approximately 3 weeks ago. About one week ago he was admitted here for a possible small bowel obstruction. He was discharged 3 days ago. He states that at time of discharge his abdomen was still distended and is still having abdominal pain. He states his bowels have been moving but small amounts and he has been passing some gas. This evening he had an episode of vomiting and increased pain. The emesis was light brownish in color. No melena, hematemesis, or hematochezia. No fever. Some decreased urine output. No fever. On examination patient is a well-developed well-nourished well-appearing male in no acute distress. He is alert and oriented 3. There is no cyanosis or diaphoresis. The sounds are clear and equal bilaterally. Heart regular rate and rhythm. Abdomen is soft with hyperactive obstructed sounding bowel sounds. Mild diffuse tenderness. Mild to moderate distention with some tympany. Acute abdomen series suggest a small bowel obstruction with a transition point in the mid to proximal small bowel. Labs reviewed. A CT of the abdomen and pelvis with oral contrast was obtained and showed progression of the previously noted small bowel obstruction. Surgeon personal care assistant, Dr. Alba, was consulted and accepted admission the patient to the surgical service.
[2016-06-29 22:06] LABS: Basophils % 0.2 %; Eosinophils # 0.1 K/mcL (0.0-0.6); Eosinophils % 0.6 %; Hematocrit 49.6 % (37.5-50.1); Hemoglobin 16.5 g/dL (12.9-16.9); Immature Granulocytes % 0.5 % (0-4); Lymphocytes # 0.8 K/mcL (0.6-4.6); Lymphocytes % 6.8 %; Mean Corpuscular HGB Conc 33.3 g/dL (31.6-35.5); Mean Corpuscular Hemoglobin 29.9 pg (28.0-33.3); Mean Corpuscular Volume 89.9 fL (83.0-100.0); Monocytes % 8.3 %; Neutrophils # 9.6 K/mcL (1.6-8.9); Platelet Count 286 K/mcL (140-400); Red Blood Count 5.52 M/mcL (4.19-5.50); Red Cell Distribution Width 14.7 % (11.5-14.5); Segmented Neutrophils % 83.6 %
[2016-06-29 22:20] LABS: Alanine Aminotransferase 57 Units/L (0-55); Albumin 3.6 g/dL (3.5-5.0); Alkaline Phosphatase 88 Units/L (38-126); Aspartate Amino Transferase 47 Units/L (5-34); BUN/Creatinine Ratio 12 (6-26); Bilirubin,Direct 0.4 mg/dL (0.0-0.5); Bilirubin,Indirect 0.6 mg/dL (0.0-1.2); Blood Urea Nitrogen 16 mg/dL (8-26); Calcium 9.6 mg/dL (8.6-10.8); Carbon Dioxide 25 mEq/L (19-29); Chloride 104 mEq/L (98-109); Globulin 3.6 g/dL (2.4-3.5); Glucose 97 mg/dL (70-99); Lipase 13 Units/L (8-78); Osmolality,Calculated 295 (280-300); Potassium 3.8 mEq/L (3.5-4.5); Sodium 142 mEq/L (136-145); Total Protein 7.2 g/dL (6.0-8.3); eGFR For African Americans > 60 (> 60); eGFR For Non-African Americans 57 (> 60)
[2016-06-29] MEDS ORDERED: 0.9 % Sodium Chloride 500 ML IVC ONE (22:59)
[2016-06-29] MEDS ORDERED: 0.9 % Sodium Chloride 1,000 ML IVC SCH (23:00)
[2016-06-30] MEDS ORDERED: *HR* Morphine 2 MG/ML SYRINGE IVP ONE (00:19)
[2016-06-30] MEDS ORDERED: *HR* Promethazine 25 MG/ML VIAL IVP ONE (00:19)
[2016-06-30] MEDS ORDERED: *HR* LORazepam 2 MG/ML VIAL IVP ONE (04:15)
[2016-06-30] MEDS: 0.9 % Sodium Chloride 1,000 ML IVC SCH ×3 (04:43→17:30)
[2016-06-30] MEDS: *HR* Morphine 2 MG/ML SYRINGE IVP PRN ×5 (04:57→23:48)
[2016-06-30] MEDS: Pantoprazole 40 MG VIAL IVP SCH (07:46)
[2016-06-30 08:35] LABS: Basophils % 0.2 %; Eosinophils # 0.1 K/mcL (0.0-0.6); Hematocrit 40.3 % (37.5-50.1); Immature Granulocytes % 0.5 % (0-4); Lymphocytes # 0.6 K/mcL (0.6-4.6); Lymphocytes % 7.2 %; Mean Corpuscular Hemoglobin 30.6 pg (28.0-33.3); Mean Platelet Volume 9.1 fL (9.4-12.4); Monocytes # 0.7 K/mcL (0.0-1.3); Monocytes % 8.8 %; Neutrophils # 6.9 K/mcL (1.6-8.9); Platelet Count 218 K/mcL (140-400); Red Blood Count 4.48 M/mcL (4.19-5.50); Red Cell Distribution Width 15.2 % (11.5-14.5); Segmented Neutrophils % 82.3 %
[2016-06-30 08:36] LABS: Hemoglobin 13.7 g/dL (12.9-16.9)
[2016-06-30 08:50] LABS: BUN/Creatinine Ratio 16 (6-26); Blood Urea Nitrogen 15 mg/dL (8-26); Calcium 8.6 mg/dL (8.6-10.8); Carbon Dioxide 24 mEq/L (19-29); Chloride 106 mEq/L (98-109); Glucose 100 mg/dL (70-99); Osmolality,Calculated 289 (280-300); Sodium 139 mEq/L (136-145); eGFR For African Americans > 60 (> 60); eGFR For Non-African Americans > 60 (> 60)
--- NOTE | 2016-06-30 11:52 | General Surg History&Physical ---
Date of Encounter: 06/30/16 Time of Encounter: 10:00 Assessment and Plan (1) Small bowel obstruction Current Visit: Yes Status: Acute The assessment and plan as outlined above was discussed with the patient and/or family members who expressed understanding and agreement. All questions were answered. He had just underwent robotic cholecystectomy on 06/11/16 as an outpatient. He returned to the ED on 06/22/16 with abdominal pain associated with nausea and vomiting. He was found to have a partial SBO and was treated with conservative measures. He was discharged on 06/26/16 for partial SBO that appeared to be resolving. He was having BM's and passing flatus throughout the previous admission. He returned to the ED on 06/29/16 with worsening abdominal pain and distention, and has not had a BM for at least a few days. He appears to be more uncomfortable during this admission than previously. His abdomen is diffusely tender. I did not appreciate any bowel sounds on examination. His liver enzymes are mildly elevated. He is not having any flatus or bm's and is having worsening nausea. Radiographic imaging findings suggest a small bowel obstruction with a transition zone in the mid to proximal small bowel. A CT A/P revealed progression of SBO from prior study during last admission. History of Present Illness Chief complaint: abdominal pain HPI: Mr. Davis is a 61 year old male with a past medical history significant for lower GI bleed, COPD, and coronary artery disease with symptoms of biliary colic and underwent a laparoscopic cholecystectomy with cholangiogram (robotic) with Dr. Newsome on 06/11/2016. He was recently admitted with a partial SBO which was treated with conservative measures and was discharged home on . During his recent admission he had a SBFT which showed rapid movement of contrast through the colon. He returned to the ED on 06/29/16 with complaints of worsening abdominal pain, not able to have a bowel movement, and not passing any flatus. He has been unable to eat since being discharged. He continues to have nausea but has not had any emesis. He denies fever, rigors. An XR revealed possible SBO with transition zone in the mid to proximal small bowel. A CT A/P revealed progression of SBO form previous CT. Past Med Surg Social Fam HX - Past Medical History Medical history: arthritis, COPD, coronary artery disease, GERD, other Psychiatric history: no psych history - Past Surgical History Surgical History: cholecystectomy (06/11/16), orthopedic, other - Social History Smoking Status: Never smoker Smokeless Tobacco Status: No Alcohol use: none Drug use: none - Family History Mother Living Status: Hx Family Cardiac Disorders: Yes (CHF, HTN) Hx Family Neurologic Disorders: Yes (dementia) Father Living Status: Hx Family Cardiac Disorders: Yes (HTN, CHF) Hx Family Endocrine Disorder: Yes (diabetes) Hx Family Neurologic Disorders: Yes (Alzheimer's) Medications and Allergies Aspirin 81 mg PO DAILY 06/11/16 [History] Atorvastatin [Lipitor] 40 mg PO HS 06/11/16 [History] Furosemide [Lasix] 20 mg PO DAILY 06/11/16 [History] OxyCODONE/APAP 5/325 [Percocet 5/325 MG] 1 tab PO Q6HR PRN 06/22/16 [History] Ondansetron ODT [Zofran ODT] 4 mg SL Q6HR #30 tab.rapdis 06/26/16 [Rx] Tamsulosin [Flomax] 0.4 mg PO DAILY #30 capsule 06/26/16 [Rx] Allergies No Known Allergies Allergy (Verified 06/29/16 19:59) Review of Systems All systems PM: A 10-system review of systems was performed and is negative for pertinent findings except as documented above in the HPI. General Surgery Exam Initial Vital Signs Temp Pulse Resp BP Pulse Ox 98.3 F 114 18 124/84 95 06/29/16 19:54 06/29/16 19:54 06/29/16 19:54 06/29/16 19:54 06/29/16 19:54 - General physical appearance well developed, well nourished, moderate distress, moderate pain - Neck trachea midline - Respiratory normal expansion, clear to auscultation - Cardiovascular Cardiovascular exam: Present: RRR, no murmurs/rubs/gallops - Abdomen Abdomen general surgery: Present: soft, distended, tender, guarding (voluntary) , surgical scars. Absent: bowel sounds present Abdominal Tenderness: Present: diffusely - Incision Incision: Present: clean and dry, intact (from lap [place] 06/11/16) - Neurologic Present: CN 2-12 grossly intact - Psychiatric Psychiatric general surgery: Present: A&Ox3 Results - Labs 06/30/16 08:18 04/03/17 08:18 Abnormal lab results RDW 15.2 % (11.5-14.5) H 06/30/16 08:18 MPV 9.1 fL (9.4-12.4) L 06/30/16 08:18 Glucose 100 mg/dL (70-99) H 06/30/16 08:18 AST 47 Units/L (5-34) H 06/29/16 21:57 ALT 57 Units/L (0-55) H 06/29/16 21:57 Globulin 3.6 g/dL (2.4-3.5) H 06/29/16 21:57 Albumin/Globulin Ratio 1.0 (1.1-2.2) L 06/29/16 21:57 Diabetes panel 06/30/16 Range/Units 08:18 Sodium 139 (136-145) mEq/L Potassium 4.0 (3.5-4.5) mEq/L Chloride 106 (98-109) mEq/L Carbon Dioxide 24 (19-29) mEq/L BUN 15 (8-26) mg/dL Creatinine 0.94 (0.72-1.25) mg/dL Glucose 100 H (70-99) mg/dL Calcium 8.6 (8.6-10.8) mg/dL Calcium panel 06/30/16 Range/Units 08:18 Calcium 8.6 (8.6-10.8) mg/dL Pituitary panel 06/30/16 Range/Units 08:18 Sodium 139 (136-145) mEq/L Potassium 4.0 (3.5-4.5) mEq/L Chloride 106 (98-109) mEq/L Carbon Dioxide 24 (19-29) mEq/L BUN 15 (8-26) mg/dL Creatinine 0.94 (0.72-1.25) mg/dL Glucose 100 H (70-99) mg/dL Calcium 8.6 (8.6-10.8) mg/dL Adrenal panel 06/30/16 Range/Units 08:18 Sodium 139 (136-145) mEq/L Potassium 4.0 (3.5-4.5) mEq/L Chloride 106 (98-109) mEq/L Carbon Dioxide 24 (19-29) mEq/L BUN 15 (8-26) mg/dL Creatinine 0.94 (0.72-1.25) mg/dL Glucose 100 H (70-99) mg/dL Calcium 8.6 (8.6-10.8) mg/dL All other labs normal.
--- NOTE | 2016-06-30 13:11 | General Surg History&Physical ---
Date of Encounter: 06/30/16 Time of Encounter: 12:30 Assessment and Plan (1) Partial small bowel obstruction Current Visit: No Status: Resolved The assessment and plan as outlined above was discussed with the patient and/or family members who expressed understanding and agreement. All questions were answered. Continue with conservative measures at this time: Bowel rest with NG tube to LIWS IV fluids Serial abdominal exams Supportive care/pain control May need a diagnostic laparoscopy in the upcoming days (2) DVT prophylaxis Current Visit: No Status: Acute The assessment and plan as outlined above was discussed with the patient and/or family members who expressed understanding and agreement. All questions were answered. Ambulate hallways TID with assistance Heparin 5,000 units SQ twice daily for DVT prophylaxis History of Present Illness Chief complaint: LUQ pain with associated nausea/vomiting HPI: Mr. Davis is a 61 year old male who is s/p a laparoscopic cholecystectomy with IOC with Dr. Newsome on 06/11/16. He was admitted to the hospital last week with PSBO and was treated with conservative measures. He did have return of bowel function and was tolerating a soft diet without difficulty. He was discharged to home at that time. He states that he severe LUQ pain yesterday with associated nausea and vomiting and he returned to the ED for evaluation. He denies any hematemesis of coffee ground emesis. He does continue to have bowel movements but states that he has loose stools, last BM was yesterday. He is passing some flatus but less than usual for him. Denies any fevers/chills. Denies any shortness of breath of chest pains. Denies any difficulty with urination. CT scan shows evidence of a PSBO. He has been admitted to the hospital for further work-up and treatment. Past Med Surg Social Fam HX - Past Medical History Source: patient, old records reviewed Medical history: arthritis, COPD, coronary artery disease, GERD, other (CASPER) Psychiatric history: no psych history - Past Surgical History Surgical History: cholecystectomy (06/11/16), orthopedic, other (repair of right femur/crushed patella), other (exploratory laparotomy (portal and mesenteric LN sampling), Left hear cath, EGD/Colonoscopy 2016) - Social History Smoking Status: Never smoker Smokeless Tobacco Status: No Alcohol use: none Drug use: none - Family History Mother Living Status: Hx Family Cardiac Disorders: Yes (CHF, HTN) Hx Family Neurologic Disorders: Yes (dementia) Father Living Status: Hx Family Cardiac Disorders: Yes (HTN, CHF) Hx Family Endocrine Disorder: Yes (diabetes) Hx Family Neurologic Disorders: Yes (Alzheimer's) Medications and Allergies Aspirin 81 mg PO DAILY 06/11/16 [History] Atorvastatin [Lipitor] 40 mg PO HS 06/11/16 [History] Furosemide [Lasix] 20 mg PO DAILY 06/11/16 [History] OxyCODONE/APAP 5/325 [Percocet 5/325 MG] 1 tab PO Q6HR PRN 06/22/16 [History] Ondansetron ODT [Zofran ODT] 4 mg SL Q6HR #30 tab.rapdis 06/26/16 [Rx] Tamsulosin [Flomax] 0.4 mg PO DAILY #30 capsule 06/26/16 [Rx] Allergies No Known Allergies Allergy (Verified 06/29/16 19:59) Review of Systems All systems PM: reviewed and no additional remarkable complaints except as stated (in the HPI) All systems PM: A 10-system review of systems was performed and is negative for pertinent findings except as documented above in the HPI. General Surgery Exam Initial Vital Signs Temp Pulse Resp BP Pulse Ox 98.3 F 114 18 124/84 95 06/29/16 19:54 06/29/16 19:54 06/29/16 19:54 06/29/16 19:54 06/29/16 19:54 - General physical appearance well developed, well nourished, no distress, obese - Eyes PERRL, normal ocular movement - ENT dry mucosa, atraumatic, normocephalic - Neck trachea midline - Respiratory normal respiratory effort, clear to auscultation - Cardiovascular Cardiovascular exam: Present: RRR, 15, 16 - Abdomen Abdomen general surgery: Present: bowel sounds present, soft, distended, tender , wound (NG tube to LIWS with bilious drainage noted) Abdominal Tenderness: Present: LUQ - Incision Incision: Present: clean and dry, intact - Integumentary Integumentary general surgery: Present: warm and dry - Neurologic Present: CN 2-12 grossly intact - Musculoskeletal Present: normal gait, normal posture - Psychiatric Psychiatric general surgery: Present: appropriate, oriented to person, oriented to place, oriented to time, speech is normal, memory intact Results - Labs 06/30/16 08:18 06/30/16 08:18 Abnormal lab results RDW 15.2 % (11.5-14.5) H 06/30/16 08:18 MPV 9.1 fL (9.4-12.4) L 06/30/16 08:18 Glucose 100 mg/dL (70-99) H 06/30/16 08:18 AST 47 Units/L (5-34) H 06/29/16 21:57 ALT 57 Units/L (0-55) H 06/29/16 21:57 Globulin 3.6 g/dL (2.4-3.5) H 06/29/16 21:57 Albumin/Globulin Ratio 1.0 (1.1-2.2) L 06/29/16 21:57 Diabetes panel 06/30/16 Range/Units 08:18 Sodium 139 (136-145) mEq/L Potassium 4.0 (3.5-4.5) mEq/L Chloride 106 (98-109) mEq/L Carbon Dioxide 24 (19-29) mEq/L BUN 15 (8-26) mg/dL Creatinine 0.94 (0.72-1.25) mg/dL Glucose 100 H (70-99) mg/dL Calcium 8.6 (8.6-10.8) mg/dL Calcium panel 06/30/16 Range/Units 08:18 Calcium 8.6 (8.6-10.8) mg/dL Pituitary panel 06/30/16 Range/Units 08:18 Sodium 139 (136-145) mEq/L Potassium 4.0 (3.5-4.5) mEq/L Chloride 106 (98-109) mEq/L Carbon Dioxide 24 (19-29) mEq/L BUN 15 (8-26) mg/dL Creatinine 0.94 (0.72-1.25) mg/dL Glucose 100 H (70-99) mg/dL Calcium 8.6 (8.6-10.8) mg/dL Adrenal panel 06/30/16 Range/Units 08:18 Sodium 139 (136-145) mEq/L Potassium 4.0 (3.5-4.5) mEq/L Chloride 106 (98-109) mEq/L Carbon Dioxide 24 (19-29) mEq/L BUN 15 (8-26) mg/dL Creatinine 0.94 (0.72-1.25) mg/dL Glucose 100 H (70-99) mg/dL Calcium 8.6 (8.6-10.8) mg/dL All other labs normal. - Imaging Additional studies: Chest/Abdomen X-ray 06/29/16 20:25 IMPRESSION: Findings suggest a small bowel obstruction with a transition zone in the mid to proximal small bowel D/ / Christiano Henao MD / Christiano Henao MD Interpreting Provider: Christiano Henao MD Abdomen/Pelvis CT 06/29/16 21:38 IMPRESSION: Small bowel obstruction has progressed. D/ / Kevin Sepulveda MD / Kevin Sepulveda MD Interpreting Provider: Kevin Sepulveda MD X-Ray 06/30/16 02:20 IMPRESSION: The tip of the enteric tube is likely just beyond the gastroesophageal junction. The tube should be advanced approximately 10 cm. D/ / Kevin Sepulveda MD / Kevin Sepulveda MD Interpreting Provider: Kevin Sepulveda MD - Attending Attestation I examined this patient and my medical decision-making was reviewed with the LINEWORKER/PA/Advanced Practice Nurse/Resident Physician. I agree with the documented findings, disposition and treatment plan as described except to the extent set forth below.
[2016-06-30] MEDS: *HR* Heparin 5,000 UNIT/ML VIAL SQ SCH (17:30)
[2016-06-30] MEDS: Ondansetron 4 MG/2 ML VIAL IVP PRN (23:48)
[2016-07-01] MEDS: 0.9 % Sodium Chloride 1,000 ML IVC SCH ×3 (02:11→17:18)
[2016-07-01] MEDS: *HR* Morphine 2 MG/ML SYRINGE IVP PRN ×4 (04:42→18:41)
[2016-07-01] MEDS: *HR* Heparin 5,000 UNIT/ML VIAL SQ SCH ×2 (05:56→17:45)
[2016-07-01] MEDS: Chloraseptic Spray 177 ML BOTTLE MM PRN (08:10)
[2016-07-01] MEDS: Pantoprazole 40 MG VIAL IVP SCH (08:11)
--- NOTE | 2016-07-01 09:56 | General Surgery Progress Note ---
Date of Encounter: 07/01/16 Time of Encounter: 09:40 - Assessment and Plan (1) Partial small bowel obstruction Current Visit: No Status: Resolved Continue with conservative measures at this time: Bowel rest with NG tube to LIWS IV fluids CT scan of abdomen/pelvis today with IV and oral contrast via NG tube Serial abdominal exams Supportive care/pain control May need a diagnostic laparoscopy in the upcoming days pending CT results (2) DVT prophylaxis Current Visit: No Status: Acute Heparin 5,000 units SQ twice daily for DVT prophylaxis Subjective Patient reports: no new complaints, still having pain (LUQ), voiding w/o difficulty, no flatus, no bowel movement, afebrile Objective Vital Signs - Last 8 Hours Temp Pulse Resp BP Pulse Ox 07/01/16 07:32 98.0 F 70 18 143/79 97 07/01/16 07:15 97 07/01/16 05:27 97.9 F 69 15 125/74 97 Intake and Output 06/30/16 07/01/16 07/01/16 23:59 07:59 15:59 Intake Total 719 / 719 1000 / 1000 1000 / 1000 Output Total 1625 / 1625 Balance 719 / 719 -625 / -625 1000 / 1000 Intake: IV Fluids 719 / 719 1000 / 1000 1000 / 1000 0.9 % Sodium Chloride 1, 719 / 719 1000 / 1000 1000 / 1000 000 ML @ 120 mls/hr IVC . Q8H20M REPLACED BY [facility] Rx#:[id number] Oral 0 / 0 Output: Urine 400 / 400 Gastric Drainage 1225 / 1225 Other: Meal NPO NPO breakfast Blood Glucose* 88 79 - General physical appearance well developed, well nourished, no distress - Eyes normal ocular movement - ENT normal mucosa, atraumatic, normocephalic - Neck Neck exam: trachea midline - Respiratory normal respiratory effort, clear to auscultation - Cardiovascular Cardiovascular exam: Present: RRR - Abdomen Abdomen: Present: bowel sounds present (hypoactive), soft, tender, wound (NG tube to LIWS with bilious drainage noted (1425ml noted since midnight)) Abdominal Tenderness: LUQ - Incision Incision: Present: clean and dry, intact - Integumentary no rash - Neurologic CN 2-12 grossly intact - Musculoskeletal normal gait, normal posture - Psychiatric oriented to time, oriented to person, oriented to place, speech is normal, memory intact - Labs 06/30/16 08:18 06/30/16 08:18 Consult Discharge Plan - Plan Referrals: Leyla Louise, MUSA [Primary Care Provider] - - Attending Attestation I examined this patient and my medical decision-making was reviewed with the METAL FURNITURE GLAZIER/PA/Advanced Practice Nurse/Resident Physician. I agree with the documented findings, disposition and treatment plan as described except to the extent set forth below.
[2016-07-01] MEDS: Ondansetron 4 MG/2 ML VIAL IVP PRN (10:19)
[2016-07-02] MEDS: 0.9 % Sodium Chloride 1,000 ML IVC SCH ×5 (01:47→21:41)
[2016-07-02] MEDS: *HR* Heparin 5,000 UNIT/ML VIAL SQ SCH ×2 (06:04→18:19)
[2016-07-02] MEDS: Pantoprazole 40 MG VIAL IVP SCH (07:25)
--- NOTE | 2016-07-02 10:53 | General Surgery Progress Note ---
Date of Encounter: 07/02/16 Time of Encounter: 10:30 - Assessment and Plan (1) Partial small bowel obstruction Current Visit: No Status: Resolved Continue with conservative measures at this time: Advance to clear liquids with protein supplements TID IV fluids- decrease rate CT scan reviewed and is normal NG tube discontinued 07/01/16 Dr. Lomeli has seen and evaluated- will give 2 warm tap water enemas today May need CT enterography for further evaluate small bowel if worsening symptoms Supportive care/pain control Surgical intervention not indicated at this time (2) DVT prophylaxis Current Visit: No Status: Acute Heparin 5,000 units SQ twice daily for DVT prophylaxis Subjective Patient reports: no new complaints, feels better, still having pain (LUQ), pain is less, voiding w/o difficulty, flatus, no bowel movement, afebrile Objective Vital Signs - Last 8 Hours Temp Pulse Resp BP Pulse Ox 07/02/16 10:40 98.3 F 60 14 120/66 98 07/02/16 07:52 97.8 F 68 16 108/71 95 Intake and Output 07/01/16 07/02/16 07/02/16 23:59 07:59 15:59 Intake Total 700 / 700 1000 / 1000 Output Total 800 / 800 475 / 475 400 / 400 Balance -100 / -100 525 / 525 -400 / -400 Intake: IV Fluids 700 / 700 1000 / 1000 0.9 % Sodium Chloride 1, 700 / 700 1000 / 1000 000 ML @ 120 mls/hr IVC . Q8H20M [facility] Rx#:[id number] Oral 0 / 0 Output: Urine 800 / 800 475 / 475 400 / 400 Other: Meal NPO lunch NPO Weight 106.6 kg Blood Glucose* 73 72 Patient Weight 07/02/16 23:59 Weight 106.6 kg - General physical appearance well developed, well nourished, no distress - Eyes normal ocular movement - ENT normal mucosa, atraumatic, normocephalic - Respiratory normal expansion, normal respiratory effort, clear to auscultation - Cardiovascular Cardiovascular exam: Present: RRR - Abdomen Abdomen: Present: bowel sounds present, soft, tender (minimal) Abdominal Tenderness: LUQ - Neurologic CN 2-12 grossly intact - Musculoskeletal normal gait, normal posture - Psychiatric oriented to time, oriented to person, oriented to place, speech is normal, memory intact - Labs 06/30/16 08:18 06/30/16 08:18 Consult Discharge Plan - Plan Referrals: Leyla Louise, MUSA [Primary Care Provider] - - Attending Attestation I examined this patient and my medical decision-making was reviewed with the PRODUCT MANAGEMENT SPECIALIST/PA/Advanced Practice Nurse/Resident Physician. I agree with the documented findings, disposition and treatment plan as described except to the extent set forth below.
--- NOTE | 2016-07-02 12:06 | Gastroenterology Consult Note ---
<Christiano Johnson - Last Filed: 07/02/16 12:04> Date of Encounter: 07/02/16 Time of Encounter: 10:40 - Assessment and plan (1) Partial small bowel obstruction Current Visit: No Status: Resolved Assessment and plan: Consider CT enterography if continued symptoms. (2) LUQ abdominal pain Current Visit: Yes Status: Acute Assessment and plan: Could be secondary to SBO or possibly adhesion. Enteroscopy will likely not show anything, will hold on enteroscopy for now. (3) Constipation Current Visit: Yes Status: Acute Assessment and plan: Recommend 2 tap water enemas for the next 1-2 days. Qualifiers: Constipation type: unspecified constipation type Qualified Code(s): K59.00 - Constipation, unspecified - Time Spent With Patient Total time spent is greater than 50% in coordination of care (as documented) at patient's floor/unit and/or counseling patient: GI History of Present Illness - Data of Consult Patient: new to practice Consult date: 07/02/16 Requesting Physician: Brooks Newsome DO - Consult Narrative Reason for consult: LUQ pain History of present illness: Mr. Davis is a 61 year old male with PMHx of arthritis, COPD, CAD, GERD who is s /p laparoscopic cholecystectomy with IOC with Dr. Newsome on 06/11/2016. He developed severe LUQ pain on 06/29 with nausea and vomiting. He denies any fevers , chills, shortness of breath, chest pain, hematemesis, or coffee-ground emesis. Abdominal x-ray suggestive of small bowel obstruction with transition zone in the mid to proximal small bowel. CT A/P on 06/29 degrees extension of small bowel dilation is progressed slightly. CT A/P 06/30 showed distended loops of small bowel have markedly decreased in size since previous study. Pt states he has not had a BM for 5-6 days. Colonoscopy 05/08/[address] Newsome: Normal EGD 05/08/[address] Newsome: With small hiatal hernia and erythematous mucosa in the antrum. NSAIDs: ASA Anticoagulation: None Past Med Surg Social Fam HX - Past Medical History Medical history: arthritis, COPD, coronary artery disease, GERD, other (CASPER) Psychiatric history: no psych history - Past Surgical History Surgical History: cholecystectomy (06/11/16), orthopedic, other (repair of right femur/crushed patella), other (exploratory laparotomy (portal and mesenteric LN sampling), Left hear cath, EGD/Colonoscopy 2016) - Social History Smoking Status: Never smoker Smokeless Tobacco Status: No Alcohol use: none Drug use: none - Family History Mother Living Status: Hx Family Cardiac Disorders: Yes (CHF, HTN) Hx Family Neurologic Disorders: Yes (dementia) Father Living Status: Hx Family Cardiac Disorders: Yes (HTN, CHF) Hx Family Endocrine Disorder: Yes (diabetes) Hx Family Neurologic Disorders: Yes (Alzheimer's) - Gastrointestinal Gastrointestinal: Present: as per HPI - Constitutional Constitutional: as per HPI - EENT Eyes: as per HPI Ears: Present: as per HPI Nose, mouth and throat: Present: as per HPI - Cardiovascular Cardiovascular ROS: Present: as per HPI - Respiratory Respiratory IM: Present: as per HPI - Genitourinary Genitourinary: Absent: change in color, Urinary frequency - Neurological ROS Neurological GI: Present: as per HPI - Hematologic/Lymphatic Hematologic/Lymphatic pediatric: Present: as per HPI - Musculoskeletal Musculoskeletal ROS GI: Present: as per HPI - Integumentary Integumentary GI: Present: as per HPI - Psychiatric ROS Psychiatric GI: Present: as per HPI - Endocrine Endocrine IM: Present: as per HPI - Constitutional Vitals: Temp Pulse Resp BP Pulse Ox 98.3 F 60 14 120/66 98 07/02/16 10:40 07/02/16 10:40 07/02/16 10:40 07/02/16 10:40 07/02/16 10:40 General appearance: Present: cooperative, A&O X 3, no acute distress, answers questions appropriately - Head Head exam: Present: atraumatic, normocephalic - Eye Eye exam: Present: normal appearance, sclera anicteric - ENT ENT exam: Present: mucous membranes dry - Neck Neck exam general surgery: Present: normal inspection, trachea midline - Respiratory Respiratory exam: Present: CTAB. Absent: rales, rhonchi - Cardiovascular Cardiovascular exam: Present: RRR, +S1, +S2 - GI/Abdominal GI/Abdominal exam: Present: soft, tenderness (LUQ tenderness to palpation), no peritoneal signs. Absent: distended, firm, guarding Additional comments: Midline abdominal surgical scar. Laparoscopic surgical sites healing well. - Rectal Rectal exam: Present: deferred - Extremities Exam Extremities exam: Present: warm - Neurological Exam Neurological exam: Present: no focal deficits - Psychiatric Psychiatric exam: Present: normal affect, normal mood - Skin Skin exam: Present: dry, intact, normal color, warm Results - Labs CBC & Chem 7: 06/30/16 08:18 06/30/16 08:18 Labs: Last Result Calcium 8.6 mg/dL (8.6-10.8) 06/30/16 08:18 Entire Visit Hgb 13.7 g/dL (12.9-16.9) D 06/30/16 08:18 Hct 40.3 % (37.5-50.1) 06/30/16 08:18 Total Bilirubin 1.0 mg/dL (0.2-1.2) 06/29/16 21:57 AST 47 Units/L (5-34) H 06/29/16 21:57 ALT 57 Units/L (0-55) H 06/29/16 21:57 Lipase 13 Units/L (8-78) 06/29/16 21:57 - Impressions Impressions Abdomen/Pelvis CT 07/01/16 12:30 IMPRESSION: 1. Distended loops of small bowel have markedly decreased in size since the previous study of 06/29/2016. This suggests a resolving small bowel obstruction. 2. There are gallstones noted near the operative bed, unchanged. These may have fallen out during surgery. 3. Increased bibasilar atelectasis. 4. Enlarged prostate. 5. Chronic L4 compression fracture. D/ / 07/01/2016 14:07:40 Jaime Hood MD / juancho Interpreting Provider: Jaime Hood MD Consult Discharge Plan - Plan Referrals: Leyla Louise, MUSA [Primary Care Provider] - <Roberta Lomeli - Last Filed: 07/02/16 18:45> Date of Encounter: 07/02/16 Time of Encounter: 12:00 - Time Spent With Patient Total time spent is greater than 50% in coordination of care (as documented) at patient's floor/unit and/or counseling patient: GI History of Present Illness - Data of Consult Requesting Physician: Brooks Newsome DO - Consult Narrative History of present illness: Mr. Davis is a 61 year old male - Constitutional Vitals: Temp Pulse Resp BP Pulse Ox 97.3 F L 85 16 121/72 96 07/02/16 15:42 07/02/16 15:42 07/02/16 15:42 07/02/16 15:42 07/02/16 15:42 Results - Labs CBC & Chem 7: 06/30/16 08:18 06/30/16 08:18 Labs: Last Result Calcium 8.6 mg/dL (8.6-10.8) 06/30/16 08:18 Entire Visit Hgb 13.7 g/dL (12.9-16.9) D 06/30/16 08:18 Hct 40.3 % (37.5-50.1) 06/30/16 08:18 Total Bilirubin 1.0 mg/dL (0.2-1.2) 06/29/16 21:57 AST 47 Units/L (5-34) H 06/29/16 21:57 ALT 57 Units/L (0-55) H 06/29/16 21:57 Lipase 13 Units/L (8-78) 06/29/16 21:57 - Attending Attestation I examined this patient and my medical decision-making was reviewed with the TEST OPERATOR/PA/Advanced Practice Nurse/Resident Physician. I agree with the documented findings, disposition and treatment plan as described except to the extent set forth below. Patient seen imaging reviewed. Patient with symptom of nausea and upper abdominal pain for 6 weeks. Admitted with dilated loop of small bowel but on repeat scan the dilation has resolved. No obvious inflammation on the bowel wall. had abdominal surgeries in the past. Concern is whether these symptoms are due to adhesion causing partial obstruction. Doubt that he has any underlying enteritis.
[2016-07-02] MEDS ORDERED: *HR* Morphine 2 MG/ML SYRINGE IVP PRN (13:31)
[2016-07-02] MEDS ORDERED: Acetaminophen 325 MG TABLET PO PRN (13:31)
[2016-07-03] MEDS: Ondansetron 4 MG/2 ML VIAL IVP PRN (00:40)
[2016-07-03] MEDS: *HR* Heparin 5,000 UNIT/ML VIAL SQ SCH ×2 (05:35→17:15)
[2016-07-03] MEDS: 0.9 % Sodium Chloride 1,000 ML IVC SCH ×3 (05:54→22:48)
[2016-07-03] MEDS: Chloraseptic Spray 177 ML BOTTLE MM PRN (05:59)
[2016-07-03] MEDS: Pantoprazole 40 MG VIAL IVP SCH (07:52)
--- NOTE | 2016-07-03 12:53 | General Surgery Progress Note ---
Date of Encounter: 07/03/16 Time of Encounter: 12:51 - Assessment and Plan (1) Partial small bowel obstruction Current Visit: No Status: Resolved Continue with conservative measures at this time: Advance to full liquids with ensure TID IV fluids- decrease rate CT scan reviewed and is normal NG tube discontinued 07/01/16 Positive BM with enemas May need CT enterography for further evaluate small bowel if worsening symptoms Supportive care/pain control Surgical intervention not indicated at this time (2) DVT prophylaxis Current Visit: No Status: Acute Heparin 5,000 units SQ twice daily for DVT prophylaxis Subjective Patient reports: no new complaints, feels better, still having pain, pain is less, tolerating liquids well, voiding w/o difficulty, flatus, bowel movement, afebrile Objective Vital Signs - Last 8 Hours Temp Pulse Resp BP Pulse Ox 07/03/16 11:27 98.4 F 76 16 144/83 95 07/03/16 07:24 97.9 F 71 18 131/79 94 07/03/16 05:21 98.2 F 68 16 108/61 93 Intake and Output 07/02/16 07/03/16 07/03/16 23:59 07:59 15:59 Intake Total 1360 / 1360 1000 / 1000 470 / 470 Output Total 1050 / 1050 825 / 825 400 / 400 Balance 310 / 310 175 / 175 70 / 70 Intake: IV Fluids 1000 / 1000 1000 / 1000 0.9 % Sodium Chloride 1, 1000 / 1000 1000 / 1000 000 ML @ 120 mls/hr IVC . Q8H20M [facility] Rx#:[id number] Oral 360 / 360 0 / 0 470 / 470 Output: Urine 1050 / 1050 825 / 825 400 / 400 Other: Meal Dinner apple juice Stool Size Small Moderate Stool Consistency liquid soft formed Stool Color Brown Brown Yellow # Voids 1 1 # Bowel Movements 1 Weight 106.169 kg Patient Weight 07/03/16 23:59 Weight 106.169 kg - General physical appearance well developed, well nourished, no distress - Eyes normal ocular movement - ENT normal mucosa, atraumatic, normocephalic - Neck Neck exam: trachea midline - Respiratory normal expansion, normal respiratory effort, clear to auscultation - Cardiovascular Cardiovascular exam: Present: RRR - Abdomen Abdomen: Present: bowel sounds present, soft, tender (minimal) Abdominal Tenderness: LUQ - Incision Incision: Present: clean and dry, intact - Neurologic CN 2-12 grossly intact - Musculoskeletal normal gait, normal posture - Psychiatric oriented to time, oriented to person, oriented to place, speech is normal, memory intact - Labs 06/30/16 08:18 06/30/16 08:18 Consult Discharge Plan - Plan Referrals: Leyla Louise, MUSA [Primary Care Provider] -
[2016-07-04] MEDS: *HR* Heparin 5,000 UNIT/ML VIAL SQ SCH (06:09)
[2016-07-04] MEDS: 0.9 % Sodium Chloride 1,000 ML IVC SCH (06:10)
[2016-07-04] MEDS: Pantoprazole 40 MG VIAL IVP SCH (08:05)
[2016-07-04 10:20] VITALS: BP 123/74
--- NOTE | 2016-07-04 14:55 | Discharge Summary ---
Date of Encounter: 07/04/16 Time of Encounter: 14:30 - Discharge Diagnosis (1) Partial small bowel obstruction Priority: Primary Status: Resolved (2) DVT prophylaxis Priority: Secondary Status: Acute - Discharge Medications Home Medications: Aspirin 81 mg PO DAILY 06/11/16 [History] Atorvastatin [Lipitor] 40 mg PO HS 06/11/16 [History] Furosemide [Lasix] 20 mg PO DAILY 06/11/16 [History] OxyCODONE/APAP 5/325 [Percocet 5/325 MG] 1 tab PO Q6HR PRN 06/22/16 [History] Ondansetron ODT [Zofran ODT] 4 mg SL Q6HR #30 tab.rapdis 06/26/16 [Rx] Tamsulosin [Flomax] 0.4 mg PO DAILY #30 capsule 06/26/16 [Rx] Allergies/Adverse Reactions: Allergies No Known Allergies Allergy (Verified 07/01/16 12:51) General Surgery Exam Initial Vital Signs Temp Pulse Resp BP Pulse Ox 98.3 F 114 18 124/84 95 06/29/16 19:54 06/29/16 19:54 06/29/16 19:54 06/29/16 19:54 06/29/16 19:54 - General physical appearance well developed, well nourished, no distress - Eyes normal ocular movement - ENT normal mucosa, atraumatic, normocephalic - Neck trachea midline - Respiratory normal expansion, normal respiratory effort, clear to auscultation - Cardiovascular Cardiovascular exam: Present: RRR, 15, 16 - Abdomen Abdomen general surgery: Present: bowel sounds present, soft, non tender - Incision Incision: Present: clean and dry, intact - Integumentary Integumentary general surgery: Present: warm and dry - Neurologic Present: CN 2-12 grossly intact - Musculoskeletal Present: normal gait, normal posture - Psychiatric Psychiatric general surgery: Present: appropriate, oriented to person, oriented to place, oriented to time, speech is normal, memory intact Date of admission: 06/30/16 15:44 Primary care physician: Leyla Louise Consults: 07/01/16 13:32 Consult to Gastroenterology [CONS] Routine Consulting Provider: Gastroenterology Mireille Reason for Consult: Recurrent LUQ pain, recurrent nausea/vomiting Time Notified: 13:33 Call Completed: Yes Discharging clinician: Brooks Gonzales. Yamilet) Anticipated date of discharge: 07/04/16 - Patient Status Disposition: Home, Self-Care Condition: Good Functional capacity at discharge: independent ambulation Overall status at discharge: patient is progressing back to baseline - Discharge Instructions Follow Up With: Leyla Louise, MUSA [Primary Care Provider] - Brooks Newsome DO [Partnered Physician] - 07/14/16 1:30 pm (hospital follow-up) - Diet and Activity Activity: increase activity as tolerated Diet: other (full liquid diet for the next 2 weeks and then slowly advance diet as tolerated; May take ensure 3 cans per day for protein supplements.) - Hospital Course Hospital course: Mr. Davis is a 61 year old male s/p laparoscopic cholecystectomy on 06/11/16. He was admitted post-operative for a PSBO and was treated conservatively. He was discharged to home and then returned to the ED with recurrence of PSBO 3 days after discharge. Also complaints of LUQ pain. He was treated with conservative measures and Dr. Lomeli was consulted for evaluation. Dr. Lomeli recommended enemas and slow advancement of diet as tolerated. No indication for push endoscopy at this time. Dr. Lomeli recommended CT enterography if continued symptoms. He is tolerated full liquids without nausea/vomiting. States that his LUQ pain is minimal 2/10 at its worse. Vitals are stable and he is afebrile. Voiding without difficulty. Ambulating without difficulty. Moving bowels and passing flatus without difficulty. We will begin discharge planning and plan for outpatient follow-up in the next 10-14 days. - Time Spent with Patient Total time spent providing and/or coordinating discharge services: Less than 30 minutes - Impressions ITS Impressions Abdomen/Pelvis CT 07/01/16 12:30 IMPRESSION: 1. Distended loops of small bowel have markedly decreased in size since the previous study of 06/29/2016. This suggests a resolving small bowel obstruction. 2. There are gallstones noted near the operative bed, unchanged. These may have fallen out during surgery. 3. Increased bibasilar atelectasis. 4. Enlarged prostate. 5. Chronic L4 compression fracture. D/ / 07/01/2016 14:07:40 Jaime Hood MD / juancho Interpreting Provider: Jaime Hood MD
== END 2016-07-04 15:22 | disposition home or self-care (01) | DRG 392 ==
LOC: 3ANU 19:52 → EMEROO 19:52 → SUATTDRO 06-30 02:00 → 3ANU 06-30 04:15
PROVIDERS: ADMIT Surgery; ATTEND Surgery

== ENCOUNTER 2021-05-28 16:54 | Inpatient (IN) ==
[2021-05-28] MEDS ORDERED: Isovue-370 500 ML BOTTLE IVP ONE (20:56)
[2021-05-28] MEDS ORDERED: Pantoprazole 40 MG VIAL IVP ONE (20:56)
[2021-05-28] MEDS ORDERED: Famotidine 20 MG/2 ML VIAL IVP ONE (20:56)
[2021-05-28] MEDS ORDERED: Ondansetron 4 MG/2 ML VIAL IVP PRN (20:56)
[2021-05-28 21:37] LABS: Basophils # 0.1 K/mcL (0.0-0.2); Basophils % 0.3 %; Eosinophils # 0.4 K/mcL (0.0-0.6); Eosinophils % 2.4 %; Hematocrit 49.1 % (37.5-50.1); Hemoglobin 16.8 g/dL (12.9-16.9); Immature Granulocytes % 0.7 % (0-4); Lymphocytes # 0.8 K/mcL (0.6-4.6); Lymphocytes % 5.2 %; Mean Corpuscular HGB Conc 34.2 g/dL (31.6-35.5); Mean Corpuscular Hemoglobin 30.8 pg (28.0-33.3); Mean Corpuscular Volume 90.1 fL (83.0-100.0); Mean Platelet Volume 9.4 fL (9.4-12.4); Monocytes # 1.1 K/mcL (0.0-1.3); Monocytes % 7.5 %; Neutrophils # 12.1 K/mcL (1.6-8.9); Platelet Count 295 K/mcL (140-400); Red Blood Count 5.45 M/mcL (4.19-5.50); Red Cell Distribution Width 14.7 % (11.5-14.5); Segmented Neutrophils % 83.9 %; White Blood Count 14.5 K/mcL (4.3-11.1)
[2021-05-28 21:46] LABS: INR 1.3
[2021-05-28 21:49] LABS: Activated Partial Thrombo Time 29.7 Seconds (26.0-36.0)
[2021-05-28 21:59] LABS: Alanine Aminotransferase 12 Units/L (7-52); Albumin/Globulin Ratio 1.3 (1.1-2.2); Alkaline Phosphatase 75 Units/L (34-104); Aspartate Amino Transferase 17 Units/L (13-39); BUN/Creatinine Ratio 14 (6-26); Bilirubin,Direct 0.2 mg/dL (0.0-0.2); Bilirubin,Indirect 0.6 mg/dL (0.0-1.0); Bilirubin,Total 0.8 mg/dL (0.3-1.0); Blood Urea Nitrogen 16 mg/dL (8-23); Calcium 9.7 mg/dL (8.6-10.3); Carbon Dioxide 30 mEq/L (23-29); Chloride 100 mEq/L (98-107); Globulin 3.1 g/dL (2.4-3.5); Glucose 105 mg/dL (70-105); Lipase 17 Units/L (11-82); Osmolality,Calculated 288 (280-300); Sodium 138 mEq/L (136-145); Total Protein 7.1 g/dL (6.4-8.9); Troponin I < 0.03 ng/mL (< 0.04); eGFR For African Americans > 60 (> 60); eGFR For Non-African Americans > 60 (> 60)
[2021-05-28 22:16] LABS: Influenza A PCR Negative (Negative); Influenza B PCR Negative (Negative); Resp. Syncytial Virus PCR Negative (Negative)
[2021-05-28 22:17] LABS: SARS-CoV-2 by PCR (In House) Negative (Negative)
[2021-05-28 22:41] LABS: Bilirubin,Urine Negative (Negative); Blood,Urine Negative (Negative); Clarity,Urine Clear (Clear); Color,Urine Light-Yellow (Yellow); Glucose,Urine (UA) Normal (Normal); Ketones,Urine Negative (Negative); Leukocyte Esterase,Urine Negative (Negative); Nitrite,Urine Negative (Negative); Protein,Urine Trace mg/dL (Neg-Trace); Specific Gravity,Urine > 1.030 (1.010-1.025); Urobilinogen,Urine Normal (Normal)
[2021-05-28] MEDS ORDERED: Metoclopramide 10 MG/2 ML VIAL IVP ONE (23:03)
[2021-05-28] MEDS ORDERED: 0.9 % Sodium Chloride 1,000 ML IV ONE (23:03)
[2021-05-29] MEDS ORDERED: Ondansetron 4 MG/2 ML VIAL IVP PRN (01:38)
[2021-05-29] MEDS ORDERED: Naloxone 0.4 MG/ML INJ IVP PRN ×2 (01:38→01:39)
[2021-05-29] MEDS: 0.9 % Sodium Chloride 1,000 ML IVC SCH ×2 (02:25→11:58)
[2021-05-29] MEDS: Melatonin 3 MG TABLET PO PRN ×2 (02:26→21:45)
[2021-05-29 05:16] LABS: Basophils % 0.3 %; Eosinophils # 0.1 K/mcL (0.0-0.6); Eosinophils % 0.9 %; Hematocrit 43.8 % (37.5-50.1); Immature Granulocytes % 0.6 % (0-4); Lymphocytes # 0.6 K/mcL (0.6-4.6); Lymphocytes % 4.6 %; Mean Corpuscular Hemoglobin 30.8 pg (28.0-33.3); Mean Corpuscular Volume 90.5 fL (83.0-100.0); Monocytes % 7.6 %; Neutrophils # 10.8 K/mcL (1.6-8.9); Platelet Count 267 K/mcL (140-400); Red Blood Count 4.84 M/mcL (4.19-5.50); Red Cell Distribution Width 14.7 % (11.5-14.5); White Blood Count 12.6 K/mcL (4.3-11.1)
[2021-05-29 05:21] LABS: Hemoglobin 14.9 g/dL (12.9-16.9)
[2021-05-29 05:44] LABS: Alanine Aminotransferase 10 Units/L (7-52); Albumin 3.4 g/dL (3.5-5.7); Albumin/Globulin Ratio 1.2 (1.1-2.2); Alkaline Phosphatase 65 Units/L (34-104); Aspartate Amino Transferase 14 Units/L (13-39); BUN/Creatinine Ratio 15 (6-26); Bilirubin,Total 0.6 mg/dL (0.3-1.0); Blood Urea Nitrogen 15 mg/dL (8-23); Calcium 8.8 mg/dL (8.6-10.3); Carbon Dioxide 25 mEq/L (23-29); Chloride 106 mEq/L (98-107); Globulin 2.9 g/dL (2.4-3.5); Glucose 106 mg/dL (70-105); Osmolality,Calculated 287 (280-300); Phosphorous 4.3 mg/dL (2.7-4.5); Potassium 4.3 mEq/L (3.5-5.1); Sodium 138 mEq/L (136-145); Total Protein 6.3 g/dL (6.4-8.9); eGFR For African Americans > 60 (> 60); eGFR For Non-African Americans > 60 (> 60)
[2021-05-29] MEDS: *HR* Heparin 5,000 UNIT/ML VIAL SQ SCH ×2 (06:13→16:55)
[2021-05-29] MEDS ORDERED: Chloraseptic Spray 177 ML BOTTLE MM PRN (08:11)
[2021-05-29] MEDS: Ondansetron 4 MG/2 ML VIAL IVP PRN ×2 (10:05→16:49)
[2021-05-30] MEDS: *HR* Heparin 5,000 UNIT/ML VIAL SQ SCH ×2 (05:19→16:40)
[2021-05-30 09:07] LABS: Basophils % 0.2 %; Eosinophils # 0.3 K/mcL (0.0-0.6); Eosinophils % 2.7 %; Hematocrit 47.1 % (37.5-50.1); Hemoglobin 15.8 g/dL (12.9-16.9); Immature Granulocytes % 0.8 % (0-4); Lymphocytes # 0.5 K/mcL (0.6-4.6); Lymphocytes % 3.9 %; Mean Corpuscular HGB Conc 33.5 g/dL (31.6-35.5); Mean Corpuscular Hemoglobin 30.7 pg (28.0-33.3); Mean Corpuscular Volume 91.5 fL (83.0-100.0); Mean Platelet Volume 9.4 fL (9.4-12.4); Monocytes # 1.1 K/mcL (0.0-1.3); Monocytes % 8.8 %; Neutrophils # 10.1 K/mcL (1.6-8.9); Platelet Count 268 K/mcL (140-400); Red Blood Count 5.15 M/mcL (4.19-5.50); Red Cell Distribution Width 15.2 % (11.5-14.5); Segmented Neutrophils % 83.6 %; White Blood Count 12.1 K/mcL (4.3-11.1)
[2021-05-30 09:23] LABS: BUN/Creatinine Ratio 17 (6-26); Blood Urea Nitrogen 18 mg/dL (8-23); Calcium 8.5 mg/dL (8.6-10.3); Carbon Dioxide 28 mEq/L (23-29); Chloride 103 mEq/L (98-107); Glucose 97 mg/dL (70-105); Osmolality,Calculated 286 (280-300); Potassium 4.5 mEq/L (3.5-5.1); Sodium 137 mEq/L (136-145); eGFR For African Americans > 60 (> 60); eGFR For Non-African Americans > 60 (> 60)
[2021-05-30] MEDS: Ondansetron 4 MG/2 ML VIAL IVP PRN (13:48)
[2021-05-31] MEDS: *HR* Heparin 5,000 UNIT/ML VIAL SQ SCH (05:38)
[2021-05-31 05:50] LABS: Basophils % 0.3 %; Eosinophils # 0.4 K/mcL (0.0-0.6); Eosinophils % 3.9 %; Hematocrit 48.3 % (37.5-50.1); Hemoglobin 15.8 g/dL (12.9-16.9); Immature Granulocytes % 0.4 % (0-4); Lymphocytes # 0.9 K/mcL (0.6-4.6); Lymphocytes % 8.6 %; Mean Corpuscular HGB Conc 32.7 g/dL (31.6-35.5); Mean Corpuscular Volume 91.8 fL (83.0-100.0); Mean Platelet Volume 9.6 fL (9.4-12.4); Monocytes % 10.1 %; Neutrophils # 7.9 K/mcL (1.6-8.9); Platelet Count 291 K/mcL (140-400); Red Blood Count 5.26 M/mcL (4.19-5.50); Red Cell Distribution Width 15.1 % (11.5-14.5); Segmented Neutrophils % 76.7 %; White Blood Count 10.3 K/mcL (4.3-11.1)
[2021-05-31 06:24] LABS: BUN/Creatinine Ratio 16 (6-26); Blood Urea Nitrogen 18 mg/dL (8-23); Carbon Dioxide 28 mEq/L (23-29); Chloride 101 mEq/L (98-107); Glucose 94 mg/dL (70-105); Osmolality,Calculated 288 (280-300); Potassium 3.5 mEq/L (3.5-5.1); Sodium 138 mEq/L (136-145); eGFR For African Americans > 60 (> 60); eGFR For Non-African Americans > 60 (> 60)
[2021-05-31 12:35] VITALS: BP 103/67; PULSE 79; TEMP 98; O2SAT 93
== END 2021-05-31 13:15 | disposition home or self-care (01) | DRG 389 ==
LOC: 3ANU 16:54 → EMEROOARM 16:54 → SUATTDRO 23:36 → 3ANU 05-29 01:00
PROVIDERS: ADMIT Internal Medicine; ATTEND Family Medicine